=== PATIENT | male | born 1930 | race Caucasian/White ===

== ENCOUNTER → 2016-12-07 | Outpatient (CLI) | payer MEDICARE, MEDICAID ==
[~2016-12-07] MED LIST: ASCO500 PO; ASPI-1093 PO; BACTDSB PO; BUME2TAB18 PO; CALC-911 PO; CARV12.530 PO; CIPR-278 PO; CLOP75 PO; DOXA1TAB2 PO; GABA-531 PO; GLIP5 PO; ISOS30TA29 PO; LEVO25TA9 PO; LISI40TA4 PO; MULT-1192 PO; NITR0.4T SL; POTA8TAB4 PO; RANI150T7 PO; SANTO TP; SIMV-260 PO; SITA100 PO; VITA100049 PO; VITAD1000 PO
[2016-12-07 08:24] VITALS: BP_SYST 157
== END | disposition home or self-care (01) ==
LOC: HBOWC 07:44
PROVIDERS: ATTEND Emergency Medicine
DX: I87.2 Venous insufficiency (chronic) (peripheral) (principal); L97.821 Non-pressure chronic ulcer of other part of left lower leg limited to breakdown of skin; E11.622 Type 2 diabetes mellitus with other skin ulcer; L97.811 Non-pressure chronic ulcer of other part of right lower leg limited to breakdown of skin; E11.51 Type 2 diabetes mellitus with diabetic peripheral angiopathy without gangrene; E11.22 Type 2 diabetes mellitus with diabetic chronic kidney disease; N18.9 Chronic kidney disease, unspecified; L84 Corns and callosities; L95.0 Livedoid vasculitis; B35.1 Tinea unguium; Q66.7 Congenital pes cavus
CPT/HCPCS: 97597

== ENCOUNTER → 2016-12-21 | Outpatient (CLI) | payer MEDICARE, MEDICAID ==
[2016-12-21 08:24] VITALS: BP 145/66
== END | disposition home or self-care (01) ==
LOC: HBOWC 07:28
PROVIDERS: ATTEND Emergency Medicine
DX: E11.622 Type 2 diabetes mellitus with other skin ulcer (principal); L97.821 Non-pressure chronic ulcer of other part of left lower leg limited to breakdown of skin; L97.811 Non-pressure chronic ulcer of other part of right lower leg limited to breakdown of skin; E11.51 Type 2 diabetes mellitus with diabetic peripheral angiopathy without gangrene; I87.8 Other specified disorders of veins; I77.9 Disorder of arteries and arterioles, unspecified; I87.2 Venous insufficiency (chronic) (peripheral); L95.0 Livedoid vasculitis; B35.1 Tinea unguium; L84 Corns and callosities; E11.22 Type 2 diabetes mellitus with diabetic chronic kidney disease; N18.9 Chronic kidney disease, unspecified
CPT/HCPCS: 97597

== ENCOUNTER → 2017-01-03 | Outpatient (CLI) | payer MEDICARE, MEDICAID ==
[~2017-01-03] MED LIST changes: +LIDOCAINE HCL 2% 5 ML JELLY TP ONE
[2017-01-03 08:31] VITALS: BP 176/74
== END | disposition home or self-care (01) ==
LOC: HBOWC 07:56
PROVIDERS: ATTEND Emergency Medicine Undersea and Hyperbaric Medicine
DX: E11.622 Type 2 diabetes mellitus with other skin ulcer (principal); L97.821 Non-pressure chronic ulcer of other part of left lower leg limited to breakdown of skin; L97.811 Non-pressure chronic ulcer of other part of right lower leg limited to breakdown of skin; I87.2 Venous insufficiency (chronic) (peripheral); E11.22 Type 2 diabetes mellitus with diabetic chronic kidney disease; I12.9 Hypertensive chronic kidney disease with stage 1 through stage 4 chronic kidney disease, or unspecified chronic kidney disease; N18.9 Chronic kidney disease, unspecified; B35.1 Tinea unguium; E11.51 Type 2 diabetes mellitus with diabetic peripheral angiopathy without gangrene
CPT/HCPCS: 97597

== ENCOUNTER → 2017-01-17 | Outpatient (CLI) | payer MEDICARE, MEDICAID ==
[~2017-01-17] MED LIST changes: -CIPR-278 PO; -LIDOCAINE HCL 2% 5 ML JELLY TP ONE; -SIMV-260 PO; +SIMV20 PO
[2017-01-17 08:25] VITALS: BP 141/71
== END | disposition home or self-care (01) ==
LOC: HBOWC 07:58
PROVIDERS: ATTEND Emergency Medicine
DX: E11.622 Type 2 diabetes mellitus with other skin ulcer (principal); I87.2 Venous insufficiency (chronic) (peripheral); E11.51 Type 2 diabetes mellitus with diabetic peripheral angiopathy without gangrene; L97.811 Non-pressure chronic ulcer of other part of right lower leg limited to breakdown of skin; B35.1 Tinea unguium; L84 Corns and callosities; E11.22 Type 2 diabetes mellitus with diabetic chronic kidney disease; I12.9 Hypertensive chronic kidney disease with stage 1 through stage 4 chronic kidney disease, or unspecified chronic kidney disease; N18.9 Chronic kidney disease, unspecified; Q66.7 Congenital pes cavus
CPT/HCPCS: 97597

== ENCOUNTER → 2017-01-31 | Outpatient (CLI) | payer MEDICARE, MEDICAID ==
[~2017-01-31] MED LIST changes: -BACTDSB PO; -SANTO TP
[2017-01-31 08:33] VITALS: BP 142/73
== END | disposition home or self-care (01) ==
LOC: HBOWC 08:09
PROVIDERS: ATTEND Emergency Medicine Undersea and Hyperbaric Medicine
DX: E11.622 Type 2 diabetes mellitus with other skin ulcer (principal); I87.2 Venous insufficiency (chronic) (peripheral); L97.811 Non-pressure chronic ulcer of other part of right lower leg limited to breakdown of skin; E11.51 Type 2 diabetes mellitus with diabetic peripheral angiopathy without gangrene; I48.91 Unspecified atrial fibrillation; L84 Corns and callosities; E11.22 Type 2 diabetes mellitus with diabetic chronic kidney disease; I12.9 Hypertensive chronic kidney disease with stage 1 through stage 4 chronic kidney disease, or unspecified chronic kidney disease; N18.9 Chronic kidney disease, unspecified; B35.1 Tinea unguium
CPT/HCPCS: 97597

== ENCOUNTER → 2017-02-14 | Outpatient (CLI) | payer MEDICARE, MEDICAID ==
[~2017-02-14] MED LIST changes: +LIDOCAINE HCL 2% 5 ML JELLY TP ONE
[2017-02-14 08:25] VITALS: BP 179/69
== END | disposition home or self-care (01) ==
LOC: HBOWC 07:06
PROVIDERS: ATTEND Emergency Medicine
DX: E11.622 Type 2 diabetes mellitus with other skin ulcer (principal); L97.811 Non-pressure chronic ulcer of other part of right lower leg limited to breakdown of skin; I87.2 Venous insufficiency (chronic) (peripheral); L97.821 Non-pressure chronic ulcer of other part of left lower leg limited to breakdown of skin; E11.22 Type 2 diabetes mellitus with diabetic chronic kidney disease; I12.9 Hypertensive chronic kidney disease with stage 1 through stage 4 chronic kidney disease, or unspecified chronic kidney disease; N18.9 Chronic kidney disease, unspecified; E11.51 Type 2 diabetes mellitus with diabetic peripheral angiopathy without gangrene; B35.1 Tinea unguium; L84 Corns and callosities; L95.0 Livedoid vasculitis
CPT/HCPCS: 97597

== ENCOUNTER → 2017-02-28 | Outpatient (CLI) | payer MEDICARE, MEDICAID ==
[~2017-02-28] MED LIST changes: +CIPR-278 PO; +DULO30CA2 PO; -LIDOCAINE HCL 2% 5 ML JELLY TP ONE; +PREG50 PO; +SIMV-260 PO; -SIMV20 PO
[2017-02-28 08:09] VITALS: BP 161/69
== END | disposition home or self-care (01) ==
LOC: HBOWC 07:45
PROVIDERS: ATTEND Emergency Medicine
DX: E11.622 Type 2 diabetes mellitus with other skin ulcer (principal); I87.2 Venous insufficiency (chronic) (peripheral); L97.821 Non-pressure chronic ulcer of other part of left lower leg limited to breakdown of skin; L97.811 Non-pressure chronic ulcer of other part of right lower leg limited to breakdown of skin; E11.51 Type 2 diabetes mellitus with diabetic peripheral angiopathy without gangrene; B35.1 Tinea unguium; E11.22 Type 2 diabetes mellitus with diabetic chronic kidney disease; I12.9 Hypertensive chronic kidney disease with stage 1 through stage 4 chronic kidney disease, or unspecified chronic kidney disease; N18.9 Chronic kidney disease, unspecified; I48.91 Unspecified atrial fibrillation; L84 Corns and callosities; Q66.7 Congenital pes cavus
CPT/HCPCS: 97597

== ENCOUNTER → 2017-03-14 | Outpatient (CLI) | payer MEDICARE, MEDICAID ==
[~2017-03-14] MED LIST changes: -CIPR-278 PO; -DULO30CA2 PO; -PREG50 PO
[2017-03-14 08:30] VITALS: BP 136/66
== END | disposition home or self-care (01) ==
LOC: HBOWC 07:44
PROVIDERS: ATTEND Emergency Medicine
DX: E11.622 Type 2 diabetes mellitus with other skin ulcer (principal); L97.811 Non-pressure chronic ulcer of other part of right lower leg limited to breakdown of skin; I87.2 Venous insufficiency (chronic) (peripheral); E11.621 Type 2 diabetes mellitus with foot ulcer; L97.511 Non-pressure chronic ulcer of other part of right foot limited to breakdown of skin; E11.51 Type 2 diabetes mellitus with diabetic peripheral angiopathy without gangrene; E11.22 Type 2 diabetes mellitus with diabetic chronic kidney disease; I12.9 Hypertensive chronic kidney disease with stage 1 through stage 4 chronic kidney disease, or unspecified chronic kidney disease; N18.9 Chronic kidney disease, unspecified; I48.91 Unspecified atrial fibrillation; B35.1 Tinea unguium; L95.0 Livedoid vasculitis; L84 Corns and callosities
CPT/HCPCS: 97597

== ENCOUNTER → 2017-03-30 | Outpatient (CLI) | payer MEDICARE, MEDICAID ==
[~2017-03-30] MED LIST changes: +CIPR-278 PO; +DULO30CA2 PO; +PREG50 PO
[2017-03-30 08:15] VITALS: BP 149/64
== END | disposition home or self-care (01) ==
LOC: HBOWC 07:37
PROVIDERS: ATTEND Emergency Medicine
DX: E11.621 Type 2 diabetes mellitus with foot ulcer (principal); I87.2 Venous insufficiency (chronic) (peripheral); L97.811 Non-pressure chronic ulcer of other part of right lower leg limited to breakdown of skin; E11.51 Type 2 diabetes mellitus with diabetic peripheral angiopathy without gangrene; E11.22 Type 2 diabetes mellitus with diabetic chronic kidney disease; I12.9 Hypertensive chronic kidney disease with stage 1 through stage 4 chronic kidney disease, or unspecified chronic kidney disease; N18.9 Chronic kidney disease, unspecified; L95.0 Livedoid vasculitis; B35.1 Tinea unguium; I48.91 Unspecified atrial fibrillation
CPT/HCPCS: 97597

== ENCOUNTER → 2017-04-13 | Outpatient (CLI) | payer MEDICARE, MEDICAID ==
[~2017-04-13] MED LIST changes: -CIPR-278 PO; -DULO30CA2 PO; -PREG50 PO
[2017-04-13 08:40] VITALS: BP 117/56
== END | disposition home or self-care (01) ==
LOC: HBOWC 07:40
PROVIDERS: ATTEND Emergency Medicine
DX: E11.622 Type 2 diabetes mellitus with other skin ulcer (principal); I87.2 Venous insufficiency (chronic) (peripheral); L97.821 Non-pressure chronic ulcer of other part of left lower leg limited to breakdown of skin; L97.811 Non-pressure chronic ulcer of other part of right lower leg limited to breakdown of skin; E11.51 Type 2 diabetes mellitus with diabetic peripheral angiopathy without gangrene; E11.22 Type 2 diabetes mellitus with diabetic chronic kidney disease; I12.9 Hypertensive chronic kidney disease with stage 1 through stage 4 chronic kidney disease, or unspecified chronic kidney disease; N18.9 Chronic kidney disease, unspecified; L95.0 Livedoid vasculitis; B35.1 Tinea unguium; I48.91 Unspecified atrial fibrillation; L84 Corns and callosities; M21.6X9 Other acquired deformities of unspecified foot
CPT/HCPCS: 11720; 97597

== ENCOUNTER → 2017-04-27 | Outpatient (CLI) | payer MEDICARE, MEDICAID ==
[~2017-04-27] MED LIST changes: +CIPR-278 PO; +DULO30CA2 PO; +LIDOCAINE HCL 2% 5 ML JELLY TP ONE; +LIDOCAINE HCL 4% 50 ML SOLUTION TP ONE; +PREG50 PO
[2017-04-27 08:29] VITALS: BP 185/82
== END | disposition home or self-care (01) ==
LOC: HBOWC 07:45
PROVIDERS: ATTEND Emergency Medicine
DX: E11.622 Type 2 diabetes mellitus with other skin ulcer (principal); I87.2 Venous insufficiency (chronic) (peripheral); L97.821 Non-pressure chronic ulcer of other part of left lower leg limited to breakdown of skin; L97.811 Non-pressure chronic ulcer of other part of right lower leg limited to breakdown of skin; E11.51 Type 2 diabetes mellitus with diabetic peripheral angiopathy without gangrene; I48.91 Unspecified atrial fibrillation; I12.9 Hypertensive chronic kidney disease with stage 1 through stage 4 chronic kidney disease, or unspecified chronic kidney disease; E11.22 Type 2 diabetes mellitus with diabetic chronic kidney disease; N18.9 Chronic kidney disease, unspecified; Q66.7 Congenital pes cavus; L84 Corns and callosities; B35.1 Tinea unguium
CPT/HCPCS: 97597; 97598

== ENCOUNTER → 2017-05-11 | Outpatient (CLI) | payer MEDICARE, MEDICAID ==
[~2017-05-11] MED LIST changes: -LIDOCAINE HCL 2% 5 ML JELLY TP ONE; -LIDOCAINE HCL 4% 50 ML SOLUTION TP ONE
[2017-05-11 08:35] VITALS: BP 146/63
== END | disposition home or self-care (01) ==
LOC: HBOWC 07:42
PROVIDERS: ATTEND Emergency Medicine Undersea and Hyperbaric Medicine
DX: E11.622 Type 2 diabetes mellitus with other skin ulcer (principal); I87.2 Venous insufficiency (chronic) (peripheral); L97.811 Non-pressure chronic ulcer of other part of right lower leg limited to breakdown of skin; L97.821 Non-pressure chronic ulcer of other part of left lower leg limited to breakdown of skin; E11.51 Type 2 diabetes mellitus with diabetic peripheral angiopathy without gangrene; E11.22 Type 2 diabetes mellitus with diabetic chronic kidney disease; I12.9 Hypertensive chronic kidney disease with stage 1 through stage 4 chronic kidney disease, or unspecified chronic kidney disease; N18.9 Chronic kidney disease, unspecified; I48.91 Unspecified atrial fibrillation; Z91.19 Patient's noncompliance with other medical treatment and regimen
CPT/HCPCS: 97597

== ENCOUNTER → 2017-05-26 | Outpatient (CLI) | payer MEDICARE, MEDICAID ==
[~2017-05-26] MED LIST changes: +CEPH500 PO
[2017-05-26 08:24] VITALS: BP 152/77
== END | disposition home or self-care (01) ==
LOC: HBOWC 07:46
PROVIDERS: ATTEND Emergency Medicine
DX: E11.622 Type 2 diabetes mellitus with other skin ulcer (principal); I87.2 Venous insufficiency (chronic) (peripheral); L97.821 Non-pressure chronic ulcer of other part of left lower leg limited to breakdown of skin; L97.811 Non-pressure chronic ulcer of other part of right lower leg limited to breakdown of skin; E11.51 Type 2 diabetes mellitus with diabetic peripheral angiopathy without gangrene; E11.22 Type 2 diabetes mellitus with diabetic chronic kidney disease; I12.9 Hypertensive chronic kidney disease with stage 1 through stage 4 chronic kidney disease, or unspecified chronic kidney disease; N18.9 Chronic kidney disease, unspecified; I48.91 Unspecified atrial fibrillation; B35.1 Tinea unguium; L84 Corns and callosities
CPT/HCPCS: 97597

== ENCOUNTER → 2017-06-09 | Outpatient (CLI) | payer MEDICARE, MEDICAID ==
[~2017-06-09] MED LIST changes: -CIPR-278 PO; +LIDOCAINE HCL 2% 5 ML JELLY TP ONE
[2017-06-09 08:32] VITALS: BP 147/74
== END | disposition home or self-care (01) ==
LOC: HBOWC 07:45
PROVIDERS: ATTEND Emergency Medicine
DX: I87.2 Venous insufficiency (chronic) (peripheral) (principal); E11.622 Type 2 diabetes mellitus with other skin ulcer; L97.811 Non-pressure chronic ulcer of other part of right lower leg limited to breakdown of skin; E11.51 Type 2 diabetes mellitus with diabetic peripheral angiopathy without gangrene; E11.22 Type 2 diabetes mellitus with diabetic chronic kidney disease; I12.9 Hypertensive chronic kidney disease with stage 1 through stage 4 chronic kidney disease, or unspecified chronic kidney disease; N18.4 Chronic kidney disease, stage 4 (severe); L84 Corns and callosities; B35.1 Tinea unguium; I48.91 Unspecified atrial fibrillation
CPT/HCPCS: 97597

== ENCOUNTER → 2017-06-23 | Outpatient (CLI) | payer MEDICARE, MEDICAID ==
[2017-06-23 08:51] VITALS: BP 182/81
== END | disposition home or self-care (01) ==
LOC: HBOWC 07:22
PROVIDERS: ATTEND Emergency Medicine
DX: E11.622 Type 2 diabetes mellitus with other skin ulcer (principal); I87.2 Venous insufficiency (chronic) (peripheral); L97.821 Non-pressure chronic ulcer of other part of left lower leg limited to breakdown of skin; L97.811 Non-pressure chronic ulcer of other part of right lower leg limited to breakdown of skin; E11.51 Type 2 diabetes mellitus with diabetic peripheral angiopathy without gangrene; E11.22 Type 2 diabetes mellitus with diabetic chronic kidney disease; N18.4 Chronic kidney disease, stage 4 (severe); I48.91 Unspecified atrial fibrillation; B35.1 Tinea unguium; L84 Corns and callosities
CPT/HCPCS: 97597

== ENCOUNTER → 2017-07-07 | Outpatient (CLI) | payer MEDICARE, MEDICAID ==
[~2017-07-07] MED LIST changes: -CEPH500 PO; -LIDOCAINE HCL 2% 5 ML JELLY TP ONE
[2017-07-07 08:50] VITALS: BP 179/78
== END | disposition home or self-care (01) ==
LOC: HBOWC 07:33
PROVIDERS: ATTEND Emergency Medicine Undersea and Hyperbaric Medicine
DX: E11.622 Type 2 diabetes mellitus with other skin ulcer (principal); L97.821 Non-pressure chronic ulcer of other part of left lower leg limited to breakdown of skin; E11.22 Type 2 diabetes mellitus with diabetic chronic kidney disease; I12.9 Hypertensive chronic kidney disease with stage 1 through stage 4 chronic kidney disease, or unspecified chronic kidney disease; N18.4 Chronic kidney disease, stage 4 (severe); L84 Corns and callosities; B35.1 Tinea unguium; E11.51 Type 2 diabetes mellitus with diabetic peripheral angiopathy without gangrene; I48.91 Unspecified atrial fibrillation
CPT/HCPCS: 97597

== ENCOUNTER → 2017-07-27 | Outpatient (CLI) | payer MEDICARE, MEDICAID ==
[~2017-07-27] MED LIST changes: -ASPI-1093 PO; +ASPI-1188 PO; +LIDOCAINE HCL 2% 5 ML JELLY ONE; +SITA50 PO
[2017-07-27 09:17] VITALS: BP 180/86
== END | disposition home or self-care (01) ==
LOC: HBOWC 07:37
PROVIDERS: ATTEND Nurse Practitioner Adult Health
DX: I87.2 Venous insufficiency (chronic) (peripheral) (principal); E11.622 Type 2 diabetes mellitus with other skin ulcer; L97.821 Non-pressure chronic ulcer of other part of left lower leg limited to breakdown of skin; L97.811 Non-pressure chronic ulcer of other part of right lower leg limited to breakdown of skin; E11.51 Type 2 diabetes mellitus with diabetic peripheral angiopathy without gangrene; E11.22 Type 2 diabetes mellitus with diabetic chronic kidney disease; I12.9 Hypertensive chronic kidney disease with stage 1 through stage 4 chronic kidney disease, or unspecified chronic kidney disease; N18.4 Chronic kidney disease, stage 4 (severe); B35.1 Tinea unguium; I48.91 Unspecified atrial fibrillation
CPT/HCPCS: 17250

== ENCOUNTER → 2017-08-10 | Outpatient (CLI) | payer MEDICARE, MEDICAID ==
[~2017-08-10] MED LIST changes: -LIDOCAINE HCL 2% 5 ML JELLY ONE
[2017-08-10 08:53] VITALS: BP 162/72
== END | disposition home or self-care (01) ==
LOC: HBOWC 07:48
PROVIDERS: ATTEND Podiatrist
DX: E11.622 Type 2 diabetes mellitus with other skin ulcer (principal); L97.821 Non-pressure chronic ulcer of other part of left lower leg limited to breakdown of skin; E11.51 Type 2 diabetes mellitus with diabetic peripheral angiopathy without gangrene; I12.9 Hypertensive chronic kidney disease with stage 1 through stage 4 chronic kidney disease, or unspecified chronic kidney disease; E11.22 Type 2 diabetes mellitus with diabetic chronic kidney disease; N18.4 Chronic kidney disease, stage 4 (severe); I48.91 Unspecified atrial fibrillation; I87.2 Venous insufficiency (chronic) (peripheral); B35.1 Tinea unguium

== ENCOUNTER → 2017-08-24 | Outpatient (CLI) | payer MEDICARE, MEDICAID ==
[~2017-08-24] MED LIST changes: +LIDOCAINE HCL 2% 5 ML JELLY TP ONE
[2017-08-24 08:07] VITALS: BP 157/76
== END | disposition home or self-care (01) ==
LOC: HBOWC 07:40
PROVIDERS: ATTEND Podiatrist
DX: E11.622 Type 2 diabetes mellitus with other skin ulcer (principal); L97.821 Non-pressure chronic ulcer of other part of left lower leg limited to breakdown of skin; L97.811 Non-pressure chronic ulcer of other part of right lower leg limited to breakdown of skin; E11.51 Type 2 diabetes mellitus with diabetic peripheral angiopathy without gangrene; I12.9 Hypertensive chronic kidney disease with stage 1 through stage 4 chronic kidney disease, or unspecified chronic kidney disease; E11.22 Type 2 diabetes mellitus with diabetic chronic kidney disease; N18.4 Chronic kidney disease, stage 4 (severe); I48.91 Unspecified atrial fibrillation; I87.2 Venous insufficiency (chronic) (peripheral); B35.1 Tinea unguium

== ENCOUNTER → 2017-09-07 | Outpatient (CLI) | payer MEDICARE, MEDICAID ==
[~2017-09-07] MED LIST changes: -LIDOCAINE HCL 2% 5 ML JELLY TP ONE
[2017-09-07 08:42] VITALS: BP 150/67
== END | disposition home or self-care (01) ==
LOC: HBOWC 07:14
PROVIDERS: ATTEND Nurse Practitioner Adult Health
DX: I87.2 Venous insufficiency (chronic) (peripheral) (principal); E11.622 Type 2 diabetes mellitus with other skin ulcer; L97.821 Non-pressure chronic ulcer of other part of left lower leg limited to breakdown of skin; E11.51 Type 2 diabetes mellitus with diabetic peripheral angiopathy without gangrene; E11.22 Type 2 diabetes mellitus with diabetic chronic kidney disease; I12.9 Hypertensive chronic kidney disease with stage 1 through stage 4 chronic kidney disease, or unspecified chronic kidney disease; N18.4 Chronic kidney disease, stage 4 (severe); B35.1 Tinea unguium; I48.91 Unspecified atrial fibrillation

== ENCOUNTER → 2017-09-28 | Outpatient (CLI) | payer MEDICARE, MEDICAID ==
[~2017-09-28] MED LIST changes: +LIDOCAINE HCL 2% 5 ML JELLY TP ONE
[2017-09-28 08:28] VITALS: BP 155/74
== END | disposition home or self-care (01) ==
LOC: HBOWC 08:06
PROVIDERS: ATTEND Podiatrist
DX: I70.238 Atherosclerosis of native arteries of right leg with ulceration of other part of lower leg (principal); L97.811 Non-pressure chronic ulcer of other part of right lower leg limited to breakdown of skin; I87.2 Venous insufficiency (chronic) (peripheral); E11.622 Type 2 diabetes mellitus with other skin ulcer; L97.821 Non-pressure chronic ulcer of other part of left lower leg limited to breakdown of skin; E11.51 Type 2 diabetes mellitus with diabetic peripheral angiopathy without gangrene; E11.22 Type 2 diabetes mellitus with diabetic chronic kidney disease; I12.9 Hypertensive chronic kidney disease with stage 1 through stage 4 chronic kidney disease, or unspecified chronic kidney disease; N18.4 Chronic kidney disease, stage 4 (severe); I48.91 Unspecified atrial fibrillation

== ENCOUNTER → 2017-10-12 | Outpatient (CLI) | payer MEDICARE, MEDICAID ==
[~2017-10-12] MED LIST changes: +LIDOCAINE HCL 4% 50 ML SOLUTION TP ONE
[2017-10-12 09:29] VITALS: BP 163/72
== END | disposition home or self-care (01) ==
LOC: HBOWC 08:56
PROVIDERS: ATTEND Nurse Practitioner Adult Health
DX: I87.2 Venous insufficiency (chronic) (peripheral) (principal); E11.622 Type 2 diabetes mellitus with other skin ulcer; L97.821 Non-pressure chronic ulcer of other part of left lower leg limited to breakdown of skin; L97.811 Non-pressure chronic ulcer of other part of right lower leg limited to breakdown of skin; E11.51 Type 2 diabetes mellitus with diabetic peripheral angiopathy without gangrene; I25.10 Atherosclerotic heart disease of native coronary artery without angina pectoris; E11.22 Type 2 diabetes mellitus with diabetic chronic kidney disease; I12.9 Hypertensive chronic kidney disease with stage 1 through stage 4 chronic kidney disease, or unspecified chronic kidney disease; N18.4 Chronic kidney disease, stage 4 (severe); I48.91 Unspecified atrial fibrillation; B35.1 Tinea unguium

== ENCOUNTER → 2017-11-02 | Outpatient (CLI) | payer MEDICARE, MEDICAID ==
[~2017-11-02] MED LIST changes: -LIDOCAINE HCL 2% 5 ML JELLY TP ONE; -LIDOCAINE HCL 4% 50 ML SOLUTION TP ONE
[2017-11-02 08:22] VITALS: BP 129/65
== END | disposition home or self-care (01) ==
LOC: HBOWC 07:45
PROVIDERS: ATTEND Nurse Practitioner Adult Health
DX: I87.2 Venous insufficiency (chronic) (peripheral) (principal); E11.622 Type 2 diabetes mellitus with other skin ulcer; L97.821 Non-pressure chronic ulcer of other part of left lower leg limited to breakdown of skin; E11.51 Type 2 diabetes mellitus with diabetic peripheral angiopathy without gangrene; I25.10 Atherosclerotic heart disease of native coronary artery without angina pectoris; E11.22 Type 2 diabetes mellitus with diabetic chronic kidney disease; N18.4 Chronic kidney disease, stage 4 (severe); B35.1 Tinea unguium; I48.91 Unspecified atrial fibrillation
CPT/HCPCS: 11042

== ENCOUNTER → 2017-11-06 | Outpatient (CLI) | payer MEDICARE, MEDICAID ==
[~2017-11-06] MED LIST changes: +LIDOCAINE HCL 2% 5 ML JELLY ONE
[2017-11-06 08:58] VITALS: BP 137/69
== END | disposition home or self-care (01) ==
LOC: HBOWC 08:51
PROVIDERS: ATTEND Surgery Plastic and Reconstructive Surgery
DX: I87.2 Venous insufficiency (chronic) (peripheral) (principal); E11.622 Type 2 diabetes mellitus with other skin ulcer; L97.821 Non-pressure chronic ulcer of other part of left lower leg limited to breakdown of skin; L97.811 Non-pressure chronic ulcer of other part of right lower leg limited to breakdown of skin; E11.51 Type 2 diabetes mellitus with diabetic peripheral angiopathy without gangrene; I25.10 Atherosclerotic heart disease of native coronary artery without angina pectoris; E11.22 Type 2 diabetes mellitus with diabetic chronic kidney disease; I12.9 Hypertensive chronic kidney disease with stage 1 through stage 4 chronic kidney disease, or unspecified chronic kidney disease; N18.4 Chronic kidney disease, stage 4 (severe); B35.1 Tinea unguium; I48.91 Unspecified atrial fibrillation
CPT/HCPCS: 11042

== ENCOUNTER 2017-11-15 11:53 | Inpatient (IN) | payer MEDICARE, MEDICAID ==
[~2017-11-15] VITALS: Ht 167.6 cm; Wt 85.6 kg
[~2017-11-15 11:53] MED LIST changes: -SITA50 PO
[2017-11-15 13:12] LABS: GLUCOSE,POINT OF CARE 119 MG/DL (70-110)
[2017-11-15 16:13] LABS: BASOPHILS # (AUTO) 0.02 K/uL (0.00-0.20); BASOPHILS % (AUTO) 0.2 % (0.0-2.0); EOSINOPHILS # (AUTO) 0.21 K/uL (0.00-0.70); EOSINOPHILS % (AUTO) 2.24 % (1.0-6.0); HEMATOCRIT 36.1 % (41-53); HEMOGLOBIN 11.7 g/dL (13.5-17.5); LYMPHOCYTES # (AUTO) 1.7 K/uL (1.0-4.8); LYMPHOCYTES % (AUTO) 18.6 % (22.0-44.0); MEAN CORPUSCULAR HGB CONC 32.4 G/dL (31.0-37.0); MEAN CORPUSCULAR VOLUME 86 fL (80-100); MONOCYTES # (AUTO) 0.8 K/uL (0.1-1.0); NEUTROPHILS # (AUTO) 6.5 K/uL (1.8-7.7); PLATELET COUNT (AUTO) 261 K/uL (150-450); RED BLOOD CELL COUNT(AUTO) 4.18 MIL/uL (4.50-5.90); RED CELL DISTRIBUTION WIDTH 14.3 % (11.5-14.5)
[2017-11-15 16:16] LABS: CALCIUM, TOTAL 9.2 mg/dL (8.8-10.5); CREATININE 1.29 mg/dL (0.60-1.30); POTASSIUM 4.1 mmol/L (3.5-5.1)
[2017-11-15 16:19] LABS: INR 1.1 (0.9-1.1); PROTHROMBIN TIME 11.5 SEC (9.4-11.6)
[2017-11-15 16:22] LABS: ALBUMIN 3.1 g/dL (3.4-5.0); BILIRUBIN,TOTAL 0.7 mg/dL (0.1-1.0); TOTAL PROTEIN, SERUM 8.3 g/dL (6.4-8.2)
[2017-11-15 16:24] LABS: LACTIC ACID 1.3 mmol/L (0.4-2.0)
[2017-11-15] MEDS ORDERED: ACETAMINOPHEN 325 MG TABLET PO PRN ×2 (17:45→21:30)
[2017-11-15] MEDS ORDERED: 0.9% SODIUM CHLORIDE 10 ML SYRINGE IVP PRN (17:45)
[2017-11-15] MEDS ORDERED: VANCOMYCIN HCL 1 GM/D5% WATER 200 ML IV ONE (17:45)
[2017-11-15] MEDS ORDERED: ONDANSETRON HCL 4 MG/2 ML VIAL IVP PRN (17:45)
[2017-11-15] MEDS ORDERED: ISOSORBIDE MONONITRATE 20 MG TABLET PO ONE (18:45)
[2017-11-15 20:30] VITALS: BP 147/68
[2017-11-15] MEDS ORDERED: CARVEDILOL 3.125 MG TABLET PO SCH (21:00)
[2017-11-15] MEDS ORDERED: MORPHINE SULFATE 2 MG/ML SYRINGE IVP PRN (21:30)
[2017-11-15] MEDS ORDERED: POTASSIUM CHLORIDE 20 MEQ ER TABLET PO PRN (21:30)
[2017-11-15] MEDS ORDERED: DEXTROSE 50%-WATER 25 GM/50 ML SYRINGE IVP PRN (21:30)
[2017-11-15] MEDS ORDERED: MAGNESIUM HYDROXIDE SUSPENSION 30 ML UDCUP PO PRN (21:30)
[2017-11-15] MEDS ORDERED: POTASSIUM CHL 10 MEQ/WATER 50 ML IV PRN (21:30)
[2017-11-15 23:20] VITALS: BP 116/57
[2017-11-16] MEDS ORDERED: SODIUM CHLORIDE 0.9% 250 ML IV ONE (00:47)
[2017-11-16] MEDS: PIPERACILLIN/TAZO 3.375 GM/D5W 50 ML IV SCH ×5 (00:50→21:33)
[2017-11-16] MEDS: HYDROCODONE/ACETAMINOPHEN 5-325 MG TABLET PO PRN (00:50)
[2017-11-16] MEDS: HEPARIN SODIUM,PORCINE 5,000 UNITS/ML VIAL SQ SCH ×3 (00:59→16:08)
[2017-11-16] MEDS ORDERED: INFLUENZA VIRUS VACCINE QVS 2017-18 (3YR+)/PF 60 MCG/0.5 ML SYRINGE IM ONE (04:45)
[2017-11-16 04:49] VITALS: BP 149/70
[2017-11-16] MEDS: INSULIN ASPART 100 UNITS/ML SQ PRN ×3 (06:52→21:34)
[2017-11-16 06:57] LABS: GLUCOMETER DEV NAME(LOC) 6N 1E; GLUCOSE,POINT OF CARE 127 MG/DL (70-110)
[2017-11-16 07:34] VITALS: BP 148/62
[2017-11-16] MEDS: DOCUSATE SODIUM 100 MG CAPSULE PO SCH ×2 (08:40→20:34)
[2017-11-16] MEDS: CARVEDILOL 6.25 MG TABLET PO SCH ×2 (08:40→20:35)
[2017-11-16] MEDS: PANTOPRAZOLE SODIUM 40 MG DR TABLET PO SCH (08:40)
[2017-11-16] MEDS: CLOPIDOGREL BISULFATE 75 MG TABLET PO SCH (08:40)
[2017-11-16] MEDS: ASPIRIN 81 MG CHEWABLE TABLET PO SCH (08:40)
[2017-11-16 11:43] VITALS: BP 152/62
[2017-11-16 13:27] LABS: GLUCOMETER DEV NAME(LOC) 5N 2R; GLUCOSE,POINT OF CARE 148 MG/DL (70-110)
[2017-11-16 15:21] VITALS: BP 139/64
[2017-11-16 18:47] LABS: GLUCOMETER DEV NAME(LOC) 5N 2R; GLUCOSE,POINT OF CARE 135 MG/DL (70-110)
[2017-11-16 19:50] VITALS: BP 165/69
[2017-11-16] MEDS ORDERED: ATORVASTATIN CALCIUM 20 MG TABLET PO SCH (21:00)
[2017-11-16 23:46] VITALS: BP 158/68
[2017-11-17] MEDS: HYDROCODONE/ACETAMINOPHEN 5-325 MG TABLET PO PRN ×2 (00:03→13:39)
[2017-11-17] MEDS: HEPARIN SODIUM,PORCINE 5,000 UNITS/ML VIAL SQ SCH ×2 (00:03→08:40)
[2017-11-17] MEDS: PIPERACILLIN/TAZO 3.375 GM/D5W 50 ML IV SCH ×2 (03:43→08:51)
[2017-11-17 03:47] LABS: GLUCOMETER DEV NAME(LOC) 6N 1E; GLUCOSE,POINT OF CARE 171 MG/DL (70-110)
[2017-11-17 04:44] VITALS: BP 180/74
[2017-11-17 05:28] LABS: GLUCOMETER DEV NAME(LOC) 6N 2D; GLUCOSE,POINT OF CARE 118 MG/DL (70-110)
[2017-11-17 06:14] VITALS: BP 168/78
[2017-11-17 06:17] LABS: CALCIUM, TOTAL 8.8 mg/dL (8.8-10.5); CREATININE 1.54 mg/dL (0.60-1.30); POTASSIUM 3.9 mmol/L (3.5-5.1)
[2017-11-17 06:40] LABS: BASOPHILS % (AUTO) 0.5 % (0.0-2.0); EOSINOPHILS % (AUTO) 4.1 % (1.0-6.0); HEMATOCRIT 32.2 % (41-53); HEMOGLOBIN 10.6 g/dL (13.5-17.5); LYMPHOCYTES # (AUTO) 1.6 K/uL (1.0-4.8); LYMPHOCYTES % (AUTO) 21.3 % (22.0-44.0); MEAN CORPUSCULAR VOLUME 85 fL (80-100); MONOCYTES # (AUTO) 0.8 K/uL (0.1-1.0); MONOCYTES % (AUTO) 10.2 % (2.0-9.0); NEUTROPHILS # (AUTO) 4.7 K/uL (1.8-7.7); NEUTROPHILS % (AUTO) 63.9 % (40.0-70.0); PLATELET COUNT (AUTO) 215 K/uL (150-450); RED CELL DISTRIBUTION WIDTH 14.6 % (11.5-14.5)
[2017-11-17 08:17] VITALS: BP 157/68
[2017-11-17] MEDS: CLOPIDOGREL BISULFATE 75 MG TABLET PO SCH (08:40)
[2017-11-17] MEDS: PANTOPRAZOLE SODIUM 40 MG DR TABLET PO SCH (08:40)
[2017-11-17] MEDS: DOCUSATE SODIUM 100 MG CAPSULE PO SCH (08:40)
[2017-11-17] MEDS: CARVEDILOL 6.25 MG TABLET PO SCH (08:40)
[2017-11-17] MEDS: ASPIRIN 81 MG CHEWABLE TABLET PO SCH (08:40)
[2017-11-17] MEDS ORDERED: SITA50 PO (11:31)
[2017-11-17 12:01] VITALS: BP 154/60
[2017-11-17] MEDS: INSULIN ASPART 100 UNITS/ML SQ PRN (12:17)
[2017-11-18 03:27] LABS: GLUCOMETER DEV NAME(LOC) 6N 2D; GLUCOSE,POINT OF CARE 167 MG/DL (70-110)
== END 2017-11-17 14:00 | disposition home or self-care (01) | DRG 603 ==
LOC: EMS 11:54 → 6N 18:19
PROVIDERS: ADMIT Internal Medicine; ATTEND Internal Medicine
DX: L03.115 Cellulitis of right lower limb (principal); E11.40 Type 2 diabetes mellitus with diabetic neuropathy, unspecified; E11.51 Type 2 diabetes mellitus with diabetic peripheral angiopathy without gangrene; I50.22 Chronic systolic (congestive) heart failure; I25.10 Atherosclerotic heart disease of native coronary artery without angina pectoris; I11.0 Hypertensive heart disease with heart failure; Z95.5 Presence of coronary angioplasty implant and graft; Z79.899 Other long term (current) drug therapy; S80.11XA Contusion of right lower leg, initial encounter; X58.XXXA Exposure to other specified factors, initial encounter; Y93.89 Activity, other specified; Y92.89 Other specified places as the place of occurrence of the external cause; Y99.8 Other external cause status; Z28.21 Immunization not carried out because of patient refusal
CPT/HCPCS: 82962; 83605; 87040; 87070; 87205; 93306; 96365; 99285; J1644; J2543; J3370; J7050

== ENCOUNTER → 2017-11-15 | Outpatient (CLI) | payer MEDICARE, MEDICAID ==
[~2017-11-15] MED LIST changes: -LIDOCAINE HCL 2% 5 ML JELLY ONE
[2017-11-15 10:12] VITALS: BP 159/90
== END | disposition home or self-care (01) ==
LOC: HBOWC 08:40
PROVIDERS: ATTEND Internal Medicine
DX: T81.89XD Other complications of procedures, not elsewhere classified, subsequent encounter (principal); E11.622 Type 2 diabetes mellitus with other skin ulcer; L97.821 Non-pressure chronic ulcer of other part of left lower leg limited to breakdown of skin; L97.811 Non-pressure chronic ulcer of other part of right lower leg limited to breakdown of skin; I87.2 Venous insufficiency (chronic) (peripheral); E11.51 Type 2 diabetes mellitus with diabetic peripheral angiopathy without gangrene; I25.10 Atherosclerotic heart disease of native coronary artery without angina pectoris; E11.40 Type 2 diabetes mellitus with diabetic neuropathy, unspecified; E11.22 Type 2 diabetes mellitus with diabetic chronic kidney disease; I13.0 Hypertensive heart and chronic kidney disease with heart failure and stage 1 through stage 4 chronic kidney disease, or unspecified chronic kidney disease; N18.4 Chronic kidney disease, stage 4 (severe); I50.22 Chronic systolic (congestive) heart failure; I48.92 Unspecified atrial flutter; Z95.5 Presence of coronary angioplasty implant and graft; Y83.8 Other surgical procedures as the cause of abnormal reaction of the patient, or of later complication, without mention of misadventure at the time of the procedure
CPT/HCPCS: 11042; 11045

== ENCOUNTER → 2017-11-20 | Outpatient (CLI) | payer MEDICARE, MEDICAID ==
[~2017-11-20] MED LIST changes: +COLLAGENASE 250 UNITS/GM 30 GM OINTMENT TP ONE; +LIDOCAINE HCL 4% 50 ML SOLUTION TP ONE; +SITA50 PO
[2017-11-20 09:15] VITALS: BP 148/58
== END | disposition home or self-care (01) ==
LOC: HBOWC 08:34
PROVIDERS: ATTEND Surgery Plastic and Reconstructive Surgery
DX: T81.89XD Other complications of procedures, not elsewhere classified, subsequent encounter (principal); E11.622 Type 2 diabetes mellitus with other skin ulcer; L97.821 Non-pressure chronic ulcer of other part of left lower leg limited to breakdown of skin; L97.811 Non-pressure chronic ulcer of other part of right lower leg limited to breakdown of skin; E11.51 Type 2 diabetes mellitus with diabetic peripheral angiopathy without gangrene; I87.2 Venous insufficiency (chronic) (peripheral); I25.10 Atherosclerotic heart disease of native coronary artery without angina pectoris; E11.40 Type 2 diabetes mellitus with diabetic neuropathy, unspecified; E11.22 Type 2 diabetes mellitus with diabetic chronic kidney disease; I13.0 Hypertensive heart and chronic kidney disease with heart failure and stage 1 through stage 4 chronic kidney disease, or unspecified chronic kidney disease; N18.4 Chronic kidney disease, stage 4 (severe); I50.22 Chronic systolic (congestive) heart failure; I48.92 Unspecified atrial flutter; I48.91 Unspecified atrial fibrillation; Z95.5 Presence of coronary angioplasty implant and graft; Y83.8 Other surgical procedures as the cause of abnormal reaction of the patient, or of later complication, without mention of misadventure at the time of the procedure
CPT/HCPCS: 11042; 11045; Z7610

== ENCOUNTER → 2017-11-27 | Outpatient (CLI) | payer MEDICARE, MEDICAID ==
[~2017-11-27] MED LIST changes: -BUME2TAB18 PO; -COLLAGENASE 250 UNITS/GM 30 GM OINTMENT TP ONE; -DULO30CA2 PO; -GABA-531 PO; -GLIP5 PO; -ISOS30TA29 PO; -LISI40TA4 PO; -POTA8TAB4 PO; -PREG50 PO; -SITA100 PO
[2017-11-27 08:29] VITALS: BP 145/63
== END | disposition home or self-care (01) ==
LOC: HBOWC 07:43
PROVIDERS: ATTEND Surgery Plastic and Reconstructive Surgery
DX: E11.622 Type 2 diabetes mellitus with other skin ulcer (principal); L97.811 Non-pressure chronic ulcer of other part of right lower leg limited to breakdown of skin; L97.821 Non-pressure chronic ulcer of other part of left lower leg limited to breakdown of skin; E11.51 Type 2 diabetes mellitus with diabetic peripheral angiopathy without gangrene; B35.1 Tinea unguium; I25.10 Atherosclerotic heart disease of native coronary artery without angina pectoris; E11.22 Type 2 diabetes mellitus with diabetic chronic kidney disease; I13.0 Hypertensive heart and chronic kidney disease with heart failure and stage 1 through stage 4 chronic kidney disease, or unspecified chronic kidney disease; N18.4 Chronic kidney disease, stage 4 (severe); I50.22 Chronic systolic (congestive) heart failure; Z95.1 Presence of aortocoronary bypass graft; E11.40 Type 2 diabetes mellitus with diabetic neuropathy, unspecified; I48.91 Unspecified atrial fibrillation; I48.92 Unspecified atrial flutter
CPT/HCPCS: 11043

== ENCOUNTER → 2017-12-22 | Outpatient (CLI) | payer OTHER ==
[~2017-12-22] MED LIST changes: +CHLORHEXIDINE GLUCONATE 4% 118 ML TOPICAL LIQUID TP ONE; +LIDOCAINE HCL 2% 5 ML JELLY TP ONE
[2017-12-22 09:25] VITALS: BP 125/58
== END | disposition home or self-care (01) ==
LOC: HBOWC 08:49
PROVIDERS: ATTEND Podiatrist
DX: E11.622 Type 2 diabetes mellitus with other skin ulcer (principal); L97.821 Non-pressure chronic ulcer of other part of left lower leg limited to breakdown of skin; L97.811 Non-pressure chronic ulcer of other part of right lower leg limited to breakdown of skin; I87.2 Venous insufficiency (chronic) (peripheral); E11.51 Type 2 diabetes mellitus with diabetic peripheral angiopathy without gangrene; I25.10 Atherosclerotic heart disease of native coronary artery without angina pectoris; E11.22 Type 2 diabetes mellitus with diabetic chronic kidney disease; I13.0 Hypertensive heart and chronic kidney disease with heart failure and stage 1 through stage 4 chronic kidney disease, or unspecified chronic kidney disease; N18.4 Chronic kidney disease, stage 4 (severe); I50.22 Chronic systolic (congestive) heart failure; E11.40 Type 2 diabetes mellitus with diabetic neuropathy, unspecified; Z95.1 Presence of aortocoronary bypass graft; Z95.5 Presence of coronary angioplasty implant and graft; Z91.19 Patient's noncompliance with other medical treatment and regimen; Z79.899 Other long term (current) drug therapy
CPT/HCPCS: 11042; 11045

== ENCOUNTER → 2017-12-29 | Outpatient (CLI) | payer OTHER ==
[~2017-12-29] MED LIST changes: -CHLORHEXIDINE GLUCONATE 4% 118 ML TOPICAL LIQUID TP ONE
[2017-12-29 08:39] VITALS: BP 125/52
== END | disposition home or self-care (01) ==
LOC: HBOWC 07:53
PROVIDERS: ATTEND Podiatrist
DX: E11.622 Type 2 diabetes mellitus with other skin ulcer (principal); L97.821 Non-pressure chronic ulcer of other part of left lower leg limited to breakdown of skin; L97.811 Non-pressure chronic ulcer of other part of right lower leg limited to breakdown of skin; E11.51 Type 2 diabetes mellitus with diabetic peripheral angiopathy without gangrene; I25.10 Atherosclerotic heart disease of native coronary artery without angina pectoris; E11.22 Type 2 diabetes mellitus with diabetic chronic kidney disease; I13.0 Hypertensive heart and chronic kidney disease with heart failure and stage 1 through stage 4 chronic kidney disease, or unspecified chronic kidney disease; N18.4 Chronic kidney disease, stage 4 (severe); I50.22 Chronic systolic (congestive) heart failure; E11.40 Type 2 diabetes mellitus with diabetic neuropathy, unspecified; I48.91 Unspecified atrial fibrillation; I48.92 Unspecified atrial flutter; I87.2 Venous insufficiency (chronic) (peripheral); B35.1 Tinea unguium; Z95.1 Presence of aortocoronary bypass graft; Z79.899 Other long term (current) drug therapy
CPT/HCPCS: 11042; 11045

== ENCOUNTER → 2018-01-05 | Outpatient (CLI) | payer OTHER ==
[~2018-01-05] MED LIST changes: +COLLAGENASE 250 UNITS/GM 30 GM OINTMENT TP ONE; +MUPIROCIN CALCIUM 2% 22 GM OINTMENT TP ONE
[2018-01-05 09:06] VITALS: BP 176/71
== END | disposition home or self-care (01) ==
LOC: HBOWC 08:37
PROVIDERS: ATTEND Podiatrist
DX: T81.89XD Other complications of procedures, not elsewhere classified, subsequent encounter (principal); E11.622 Type 2 diabetes mellitus with other skin ulcer; L97.821 Non-pressure chronic ulcer of other part of left lower leg limited to breakdown of skin; L97.811 Non-pressure chronic ulcer of other part of right lower leg limited to breakdown of skin; E11.40 Type 2 diabetes mellitus with diabetic neuropathy, unspecified; E11.21 Type 2 diabetes mellitus with diabetic nephropathy; E11.51 Type 2 diabetes mellitus with diabetic peripheral angiopathy without gangrene; I25.10 Atherosclerotic heart disease of native coronary artery without angina pectoris; E11.22 Type 2 diabetes mellitus with diabetic chronic kidney disease; I13.0 Hypertensive heart and chronic kidney disease with heart failure and stage 1 through stage 4 chronic kidney disease, or unspecified chronic kidney disease; N18.4 Chronic kidney disease, stage 4 (severe); I50.22 Chronic systolic (congestive) heart failure; B35.1 Tinea unguium; I48.91 Unspecified atrial fibrillation; I48.92 Unspecified atrial flutter; I87.2 Venous insufficiency (chronic) (peripheral); Z95.1 Presence of aortocoronary bypass graft; Z95.5 Presence of coronary angioplasty implant and graft; Y83.8 Other surgical procedures as the cause of abnormal reaction of the patient, or of later complication, without mention of misadventure at the time of the procedure
CPT/HCPCS: 11042; 11045; Z7610

== ENCOUNTER → 2018-01-12 | Outpatient (CLI) | payer OTHER ==
[~2018-01-12] MED LIST changes: +ATOR40TA28 PO; +BUME1TAB17 PO; +CILO100T PO; -COLLAGENASE 250 UNITS/GM 30 GM OINTMENT TP ONE; +DULO60CA44 PO; +FERR-82 PO; +ISOS30TA6 PO; -LIDOCAINE HCL 4% 50 ML SOLUTION TP ONE; -MUPIROCIN CALCIUM 2% 22 GM OINTMENT TP ONE; +PREG50 PO; +SLOWK8 PO; +VALS160T2 PO
[2018-01-12 09:47] VITALS: BP 149/74
== END | disposition home or self-care (01) ==
LOC: HBOWC 08:05
PROVIDERS: ATTEND Podiatrist
DX: E11.622 Type 2 diabetes mellitus with other skin ulcer (principal); L97.811 Non-pressure chronic ulcer of other part of right lower leg limited to breakdown of skin; L97.821 Non-pressure chronic ulcer of other part of left lower leg limited to breakdown of skin; I87.2 Venous insufficiency (chronic) (peripheral); E11.51 Type 2 diabetes mellitus with diabetic peripheral angiopathy without gangrene; B35.1 Tinea unguium; I25.10 Atherosclerotic heart disease of native coronary artery without angina pectoris; E11.22 Type 2 diabetes mellitus with diabetic chronic kidney disease; I13.0 Hypertensive heart and chronic kidney disease with heart failure and stage 1 through stage 4 chronic kidney disease, or unspecified chronic kidney disease; N18.4 Chronic kidney disease, stage 4 (severe); I50.22 Chronic systolic (congestive) heart failure; E11.40 Type 2 diabetes mellitus with diabetic neuropathy, unspecified; E11.21 Type 2 diabetes mellitus with diabetic nephropathy; I48.91 Unspecified atrial fibrillation; I48.92 Unspecified atrial flutter; Z99.2 Dependence on renal dialysis; Z95.1 Presence of aortocoronary bypass graft
CPT/HCPCS: 11042; 11045

== ENCOUNTER → 2018-01-19 | Outpatient (CLI) | payer OTHER ==
[~2018-01-19] MED LIST changes: +LIDOCAINE HCL 4% 50 ML SOLUTION TP ONE; -SIMV-260 PO
[2018-01-19 08:22] VITALS: BP 129/64
== END | disposition home or self-care (01) ==
LOC: HBOWC 07:32
PROVIDERS: ATTEND Podiatrist
DX: E11.622 Type 2 diabetes mellitus with other skin ulcer (principal); L97.821 Non-pressure chronic ulcer of other part of left lower leg limited to breakdown of skin; S81.801D Unspecified open wound, right lower leg, subsequent encounter; E11.51 Type 2 diabetes mellitus with diabetic peripheral angiopathy without gangrene; I25.10 Atherosclerotic heart disease of native coronary artery without angina pectoris; E11.22 Type 2 diabetes mellitus with diabetic chronic kidney disease; I13.0 Hypertensive heart and chronic kidney disease with heart failure and stage 1 through stage 4 chronic kidney disease, or unspecified chronic kidney disease; N18.4 Chronic kidney disease, stage 4 (severe); I50.22 Chronic systolic (congestive) heart failure; E11.40 Type 2 diabetes mellitus with diabetic neuropathy, unspecified; E11.21 Type 2 diabetes mellitus with diabetic nephropathy; I48.91 Unspecified atrial fibrillation; I48.92 Unspecified atrial flutter; I87.2 Venous insufficiency (chronic) (peripheral); Z99.2 Dependence on renal dialysis; Z95.1 Presence of aortocoronary bypass graft; X58.XXXD Exposure to other specified factors, subsequent encounter
CPT/HCPCS: 11042; 11045

== ENCOUNTER → 2018-01-26 | Outpatient (CLI) | payer OTHER ==
[2018-01-26 08:34] VITALS: BP 166/75
== END | disposition home or self-care (01) ==
LOC: HBOWC 08:03
PROVIDERS: ATTEND Podiatrist
DX: E11.622 Type 2 diabetes mellitus with other skin ulcer (principal); L97.821 Non-pressure chronic ulcer of other part of left lower leg limited to breakdown of skin; L97.811 Non-pressure chronic ulcer of other part of right lower leg limited to breakdown of skin; E11.40 Type 2 diabetes mellitus with diabetic neuropathy, unspecified; E11.51 Type 2 diabetes mellitus with diabetic peripheral angiopathy without gangrene; E11.22 Type 2 diabetes mellitus with diabetic chronic kidney disease; I13.0 Hypertensive heart and chronic kidney disease with heart failure and stage 1 through stage 4 chronic kidney disease, or unspecified chronic kidney disease; N18.4 Chronic kidney disease, stage 4 (severe); I50.22 Chronic systolic (congestive) heart failure; I25.10 Atherosclerotic heart disease of native coronary artery without angina pectoris; I48.91 Unspecified atrial fibrillation; B35.1 Tinea unguium; I87.2 Venous insufficiency (chronic) (peripheral); Z95.1 Presence of aortocoronary bypass graft; Z99.2 Dependence on renal dialysis
CPT/HCPCS: 11042; 11045

== ENCOUNTER → 2018-02-02 | Outpatient (CLI) | payer OTHER ==
[~2018-02-02] MED LIST changes: -LIDOCAINE HCL 4% 50 ML SOLUTION TP ONE
[2018-02-02 08:25] VITALS: BP 157/71
== END | disposition home or self-care (01) ==
LOC: HBOWC 07:38
PROVIDERS: ATTEND Podiatrist
DX: E11.622 Type 2 diabetes mellitus with other skin ulcer (principal); L97.811 Non-pressure chronic ulcer of other part of right lower leg limited to breakdown of skin; L97.821 Non-pressure chronic ulcer of other part of left lower leg limited to breakdown of skin; E11.51 Type 2 diabetes mellitus with diabetic peripheral angiopathy without gangrene; I87.2 Venous insufficiency (chronic) (peripheral); B35.1 Tinea unguium; I25.10 Atherosclerotic heart disease of native coronary artery without angina pectoris; E11.22 Type 2 diabetes mellitus with diabetic chronic kidney disease; I13.0 Hypertensive heart and chronic kidney disease with heart failure and stage 1 through stage 4 chronic kidney disease, or unspecified chronic kidney disease; N18.4 Chronic kidney disease, stage 4 (severe); I50.22 Chronic systolic (congestive) heart failure; E11.40 Type 2 diabetes mellitus with diabetic neuropathy, unspecified; I48.91 Unspecified atrial fibrillation; I48.92 Unspecified atrial flutter; Z99.2 Dependence on renal dialysis; Z95.1 Presence of aortocoronary bypass graft
CPT/HCPCS: 11042; 11045

== ENCOUNTER → 2018-02-09 | Outpatient (CLI) | payer OTHER ==
[~2018-02-09] MED LIST changes: -LIDOCAINE HCL 2% 5 ML JELLY TP ONE; +LIDOCAINE HCL 4% 50 ML SOLUTION TP ONE
[2018-02-09 08:15] VITALS: BP 162/88
== END | disposition home or self-care (01) ==
LOC: HBOWC 08:12
PROVIDERS: ATTEND Podiatrist
DX: E11.622 Type 2 diabetes mellitus with other skin ulcer (principal); L97.821 Non-pressure chronic ulcer of other part of left lower leg limited to breakdown of skin; L97.811 Non-pressure chronic ulcer of other part of right lower leg limited to breakdown of skin; I87.2 Venous insufficiency (chronic) (peripheral); E11.51 Type 2 diabetes mellitus with diabetic peripheral angiopathy without gangrene; B35.1 Tinea unguium; I25.10 Atherosclerotic heart disease of native coronary artery without angina pectoris; E11.22 Type 2 diabetes mellitus with diabetic chronic kidney disease; I13.0 Hypertensive heart and chronic kidney disease with heart failure and stage 1 through stage 4 chronic kidney disease, or unspecified chronic kidney disease; N18.4 Chronic kidney disease, stage 4 (severe); I50.22 Chronic systolic (congestive) heart failure; E11.40 Type 2 diabetes mellitus with diabetic neuropathy, unspecified; I48.91 Unspecified atrial fibrillation; I48.92 Unspecified atrial flutter; E11.21 Type 2 diabetes mellitus with diabetic nephropathy; Z95.1 Presence of aortocoronary bypass graft; Z95.5 Presence of coronary angioplasty implant and graft; Z99.2 Dependence on renal dialysis
CPT/HCPCS: 11042; 11045

== ENCOUNTER → 2018-02-16 | Outpatient (CLI) | payer OTHER ==
[~2018-02-16] MED LIST changes: +LIDOCAINE HCL 2% 5 ML JELLY TP ONE; -LIDOCAINE HCL 4% 50 ML SOLUTION TP ONE
[2018-02-16 08:32] VITALS: BP 148/67
== END | disposition home or self-care (01) ==
LOC: HBOWC 07:32
PROVIDERS: ATTEND Podiatrist
DX: E11.622 Type 2 diabetes mellitus with other skin ulcer (principal); L97.821 Non-pressure chronic ulcer of other part of left lower leg limited to breakdown of skin; L97.811 Non-pressure chronic ulcer of other part of right lower leg limited to breakdown of skin; E11.51 Type 2 diabetes mellitus with diabetic peripheral angiopathy without gangrene; E11.40 Type 2 diabetes mellitus with diabetic neuropathy, unspecified; I25.10 Atherosclerotic heart disease of native coronary artery without angina pectoris; I87.2 Venous insufficiency (chronic) (peripheral); E11.22 Type 2 diabetes mellitus with diabetic chronic kidney disease; I13.0 Hypertensive heart and chronic kidney disease with heart failure and stage 1 through stage 4 chronic kidney disease, or unspecified chronic kidney disease; N18.4 Chronic kidney disease, stage 4 (severe); I50.22 Chronic systolic (congestive) heart failure; B35.1 Tinea unguium; I48.91 Unspecified atrial fibrillation; Z99.2 Dependence on renal dialysis; Z95.1 Presence of aortocoronary bypass graft
CPT/HCPCS: 11042; 97597; 97598

== ENCOUNTER → 2018-02-23 | Outpatient (CLI) | payer OTHER ==
[2018-02-23 08:23] VITALS: BP 173/67
== END | disposition home or self-care (01) ==
LOC: HBOWC 07:47
PROVIDERS: ATTEND Podiatrist
DX: E11.622 Type 2 diabetes mellitus with other skin ulcer (principal); L97.821 Non-pressure chronic ulcer of other part of left lower leg limited to breakdown of skin; L97.811 Non-pressure chronic ulcer of other part of right lower leg limited to breakdown of skin; E11.51 Type 2 diabetes mellitus with diabetic peripheral angiopathy without gangrene; I25.10 Atherosclerotic heart disease of native coronary artery without angina pectoris; E11.22 Type 2 diabetes mellitus with diabetic chronic kidney disease; I13.0 Hypertensive heart and chronic kidney disease with heart failure and stage 1 through stage 4 chronic kidney disease, or unspecified chronic kidney disease; N18.4 Chronic kidney disease, stage 4 (severe); I50.22 Chronic systolic (congestive) heart failure; E11.40 Type 2 diabetes mellitus with diabetic neuropathy, unspecified; I48.91 Unspecified atrial fibrillation; I87.2 Venous insufficiency (chronic) (peripheral); E11.21 Type 2 diabetes mellitus with diabetic nephropathy; I48.92 Unspecified atrial flutter; Z99.2 Dependence on renal dialysis; Z95.1 Presence of aortocoronary bypass graft; Z95.5 Presence of coronary angioplasty implant and graft
CPT/HCPCS: 11042; 11045

== ENCOUNTER 2018-03-01 17:35 | Inpatient (IN) | payer OTHER ==
[2018-03-01] VITALS (9 sets, daily range): BP systolic 109–145; BP diastolic 36–82
[~2018-03-01] VITALS: Ht 167.6 cm; Wt 84.4 kg
[~2018-03-01 17:35] MED LIST changes: -LIDOCAINE HCL 2% 5 ML JELLY TP ONE
[2018-03-01 17:52] LABS: GLUCOSE,POINT OF CARE 141 MG/DL (70-110)
[2018-03-01 18:16] LABS: BASOPHILS % (AUTO) 0.2 % (0.0-2.0); EOSINOPHILS % (AUTO) 2.2 % (1.0-6.0); LYMPHOCYTES # (AUTO) 2.4 K/uL (1.0-4.8); LYMPHOCYTES % (AUTO) 32.2 % (22.0-44.0); MEAN CORPUSCULAR HEMOGLOBIN 27.7 pg (26.0-34.0); MEAN CORPUSCULAR HGB CONC 32.6 G/dL (31.0-37.0); MEAN CORPUSCULAR VOLUME 85 fL (80-100); MONOCYTES # (AUTO) 0.7 K/uL (0.1-1.0); MONOCYTES % (AUTO) 9.7 % (2.0-9.0); NEUTROPHILS # (AUTO) 4.2 K/uL (1.8-7.7); NEUTROPHILS % (AUTO) 55.7 % (40.0-70.0); PLATELET COUNT (AUTO) 153 K/uL (150-450); RED BLOOD CELL COUNT(AUTO) 1.91 MIL/uL (4.50-5.90); RED CELL DISTRIBUTION WIDTH 17.7 % (11.5-14.5)
[2018-03-01 18:28] LABS: HEMATOCRIT 16.2 % (41-53); HEMOGLOBIN 5.3 g/dL (13.5-17.5)
[2018-03-01 18:31] LABS: CALCIUM, TOTAL 8.1 mg/dL (8.8-10.5); CREATININE 2.34 mg/dL (0.60-1.30); POTASSIUM 4.6 mmol/L (3.5-5.1)
[2018-03-01 18:36] LABS: ALBUMIN 2.9 g/dL (3.4-5.0); BILIRUBIN,TOTAL 0.2 mg/dL (0.1-1.0); TOTAL PROTEIN, SERUM 5.9 g/dL (6.4-8.2)
[2018-03-01] MEDS ORDERED: SODIUM CHLORIDE 0.9% 250 ML IV ONE (20:10)
[2018-03-01] MEDS ORDERED: ONDANSETRON HCL 4 MG/2 ML VIAL IVP PRN ×2 (20:15→20:30)
[2018-03-01] MEDS ORDERED: ACETAMINOPHEN 325 MG TABLET PO PRN (20:15)
[2018-03-01] MEDS ORDERED: 0.9% SODIUM CHLORIDE 10 ML SYRINGE IVP PRN (20:15)
[2018-03-01] MEDS ORDERED: PANTOPRAZOLE SODIUM 80 MG in SODIUM CHLORIDE 0.9% 100 ML IV SCH (20:15)
[2018-03-01] MEDS ORDERED: SODIUM CHLORIDE 0.9% 1,000 ML IV SCH (20:30)
[2018-03-01] MEDS ORDERED: ALBUTEROL SULFATE 2.5 MG/0.5 ML NEB SOLUTION NEB PRN (20:30)
[2018-03-01] MEDS ORDERED: PANTOPRAZOLE SODIUM 40 MG/VIAL IVP ONE (20:30)
[2018-03-01] MEDS ORDERED: DEXTROSE 50%-WATER 25 GM/50 ML SYRINGE IVP PRN (20:30)
[2018-03-01] MEDS ORDERED: IPRATROPIUM BROMIDE 0.5 MG/2.5 ML NEB SOLUTION NEB PRN (20:30)
[2018-03-01 20:44] LABS: PROTHROMBIN TIME 10.5 SEC (9.4-11.6)
[2018-03-01 20:46] LABS: % IRON SATURATION 6.2 % (30-44)
[2018-03-01] MEDS: PANTOPRAZOLE SODIUM 80 MG in SODIUM CHLORIDE 0.9% 100 ML IV SCH (20:50)
[2018-03-01] MEDS ORDERED: PNEUMOCOCCAL VACCINE POLYVALENT 0.5 ML VIAL [PPSV23] IM ONE (23:45)
[2018-03-02] VITALS (14 sets, daily range): BP systolic 100–167; BP diastolic 36–93
[2018-03-02 05:51] LABS: BASOPHILS % (AUTO) 0.1 % (0.0-2.0); EOSINOPHILS % (AUTO) 3.9 % (1.0-6.0); HEMATOCRIT 23.1 % (41-53); HEMOGLOBIN 7.8 g/dL (13.5-17.5); LYMPHOCYTES % (AUTO) 28.8 % (22.0-44.0); MEAN CORPUSCULAR HEMOGLOBIN 28.9 pg (26.0-34.0); MEAN CORPUSCULAR HGB CONC 33.9 G/dL (31.0-37.0); MEAN CORPUSCULAR VOLUME 85 fL (80-100); MONOCYTES # (AUTO) 0.7 K/uL (0.1-1.0); NEUTROPHILS % (AUTO) 57.2 % (40.0-70.0); PLATELET COUNT (AUTO) 118 K/uL (150-450); RED BLOOD CELL COUNT(AUTO) 2.71 MIL/uL (4.50-5.90); RED CELL DISTRIBUTION WIDTH 15.8 % (11.5-14.5)
[2018-03-02] MEDS: PANTOPRAZOLE SODIUM 80 MG in SODIUM CHLORIDE 0.9% 100 ML IV SCH (06:18)
[2018-03-02 06:23] LABS: GLUCOSE,POINT OF CARE 104 MG/DL (70-110)
[2018-03-02 06:26] LABS: ALANINE AMINOTRANSFERASE 28 U/L (12-78); ALBUMIN 2.9 g/dL (3.4-5.0); ALKALINE PHOSPHATASE 106 U/L (46-116); ANION GAP 5 mmol/L (8-16); ASPARTATE AMINOTRANSFERASE 29 U/L (15-37); BILIRUBIN,TOTAL 0.6 mg/dL (0.1-1.0); CALCIUM, TOTAL 7.8 mg/dL (8.8-10.5); CARBON DIOXIDE 27 mmol/L (22-29); CHLORIDE 107 mmol/L (98-107); CHOL/HDL RATIO 2.5 (4.2-7.3); CHOLESTEROL 71 mg/dL (131-200); CREATININE 1.92 mg/dL (0.60-1.30); FREE T4 (FREE THYROXINE) 0.92 ng/dL (0.76-1.46); GLOMERULAR FILTR. RATE CALC 33 mL/min (>60); GLUCOSE,RANDOM 104 mg/dL (70-110); HDL CHOLESTEROL 28 mg/dL (40-60); LDL CHOL (CALC.) 26 mg/dL (0-130); PHOSPHORUS 5.1 mg/dL (2.5-4.9); POTASSIUM 4.6 mmol/L (3.5-5.1); SODIUM SERUM 139 mmol/L (136-145); THYROID STIMULATING HORMONE 4.39 uIU/mL (0.36-3.74); TOTAL PROTEIN, SERUM 5.5 g/dL (6.4-8.2); TRIGLYCERIDES 85 mg/dL (15-150); UREA NITROGEN, BLOOD 52 mg/dL (7-18)
[2018-03-02 07:58] LABS: HEMATOCRIT 22.7 % (41-53); HEMOGLOBIN 7.6 g/dL (13.5-17.5)
[2018-03-02] MEDS ORDERED: MIDAZOLAM HCL 5 MG/ML VIAL ONE (07:59)
[2018-03-02] MEDS ORDERED: FentaNYL CITRATE-PF 100 MCG/2 ML VIAL ONE (07:59)
[2018-03-02] MEDS: PANTOPRAZOLE SODIUM 40 MG/VIAL IVP SCH ×2 (09:00→20:57)
[2018-03-02 11:25] LABS: HEMATOCRIT 23.1 % (41-53); HEMOGLOBIN 7.8 g/dL (13.5-17.5)
[2018-03-02 12:08] LABS: GLUCOSE,POINT OF CARE 101 MG/DL (70-110)
[2018-03-02 18:18] LABS: GLUCOSE,POINT OF CARE 105 MG/DL (70-110)
[2018-03-02] MEDS: INSULIN LISPRO 100 UNITS/ML SQ PRN (21:17)
[2018-03-02 22:27] LABS: GLUCOSE,POINT OF CARE 111 MG/DL (70-110)
[2018-03-03] VITALS (8 sets, daily range): BP systolic 117–173; BP diastolic 59–78
[2018-03-03 06:02] LABS: BASOPHILS % (AUTO) 0.3 % (0.0-2.0); EOSINOPHILS % (AUTO) 2.9 % (1.0-6.0); HEMATOCRIT 22.8 % (41-53); HEMOGLOBIN 7.7 g/dL (13.5-17.5); LYMPHOCYTES # (AUTO) 1.7 K/uL (1.0-4.8); LYMPHOCYTES % (AUTO) 22.4 % (22.0-44.0); MEAN CORPUSCULAR HEMOGLOBIN 28.8 pg (26.0-34.0); MEAN CORPUSCULAR HGB CONC 33.9 G/dL (31.0-37.0); MEAN CORPUSCULAR VOLUME 85 fL (80-100); MONOCYTES # (AUTO) 0.9 K/uL (0.1-1.0); MONOCYTES % (AUTO) 11.5 % (2.0-9.0); NEUTROPHILS # (AUTO) 4.7 K/uL (1.8-7.7); NEUTROPHILS % (AUTO) 62.9 % (40.0-70.0); PLATELET COUNT (AUTO) 126 K/uL (150-450); RED BLOOD CELL COUNT(AUTO) 2.68 MIL/uL (4.50-5.90); RED CELL DISTRIBUTION WIDTH 16.1 % (11.5-14.5)
[2018-03-03] MEDS: INSULIN LISPRO 100 UNITS/ML SQ PRN ×2 (06:14→20:38)
[2018-03-03 06:15] LABS: CALCIUM, TOTAL 8.1 mg/dL (8.8-10.5); CREATININE 1.55 mg/dL (0.60-1.30); POTASSIUM 4.2 mmol/L (3.5-5.1)
[2018-03-03 06:57] LABS: GLUCOSE,POINT OF CARE 91 MG/DL (70-110)
[2018-03-03] MEDS: MUPIROCIN CALCIUM 2% 22 GM OINTMENT TP SCH (09:03)
[2018-03-03] MEDS: PANTOPRAZOLE SODIUM 40 MG/VIAL IVP SCH ×2 (09:03→20:29)
[2018-03-03 12:12] LABS: GLUCOSE,POINT OF CARE 121 MG/DL (70-110)
[2018-03-03] MEDS ORDERED: VALSARTAN 160 MG TABLET PO ONE (14:30)
[2018-03-03] MEDS: VALSARTAN 160 MG TABLET PO SCH (15:25)
[2018-03-03 18:08] LABS: HEMOGLOBIN 8.1 g/dL (13.5-17.5)
[2018-03-03 18:12] LABS: GLUCOSE,POINT OF CARE 84 MG/DL (70-110)
[2018-03-03] MEDS: FERROUS SULFATE 325 MG EC TABLET PO SCH ×2 (18:15→20:29)
[2018-03-03] MEDS ORDERED: HydrALAZINE HCL 20 MG/ML VIAL IVP PRN (18:15)
[2018-03-03] MEDS ORDERED: HydrALAZINE HCL 20 MG/ML VIAL ONE (18:16)
[2018-03-03] MEDS: RANITIDINE HCL 150 MG TABLET PO SCH (20:29)
[2018-03-03] MEDS: PREGABALIN 50 MG CAPSULE PO SCH (20:29)
[2018-03-03] MEDS: CARVEDILOL 6.25 MG TABLET PO SCH (20:30)
[2018-03-03] MEDS: DOXAZOSIN MESYLATE 2 MG TABLET PO SCH (20:30)
[2018-03-03 21:24] LABS: HEMATOCRIT 23.6 % (41-53); HEMOGLOBIN 7.9 g/dL (13.5-17.5)
[2018-03-03 22:57] LABS: GLUCOMETER DEV NAME(LOC) 5S 2P; GLUCOSE,POINT OF CARE 196 MG/DL (70-110)
[2018-03-04 04:38] VITALS: BP 155/65
[2018-03-04 07:37] LABS: GLUCOMETER DEV NAME(LOC) 5S 2P; GLUCOSE,POINT OF CARE 113 MG/DL (70-110)
[2018-03-04 07:44] VITALS: BP 153/70
[2018-03-04] MEDS: FERROUS SULFATE 325 MG EC TABLET PO SCH ×3 (08:42→20:42)
[2018-03-04] MEDS: CARVEDILOL 6.25 MG TABLET PO SCH ×2 (08:42→20:42)
[2018-03-04] MEDS: ASCORBIC ACID 500 MG TABLET PO SCH (08:42)
[2018-03-04] MEDS: PANTOPRAZOLE SODIUM 40 MG/VIAL IVP SCH ×2 (08:43→20:41)
[2018-03-04] MEDS: VALSARTAN 160 MG TABLET PO SCH (08:43)
[2018-03-04] MEDS: SitaGLIPtin PHOSPHATE 50 MG TABLET PO SCH (08:43)
[2018-03-04] MEDS: MUPIROCIN CALCIUM 2% 22 GM OINTMENT TP SCH (08:43)
[2018-03-04] MEDS ORDERED: LEVOTHYROXINE SODIUM 50 MCG TABLET PO SCH (09:00)
[2018-03-04 09:05] LABS: HEMATOCRIT 22.4 % (41-53); HEMOGLOBIN 7.6 g/dL (13.5-17.5)
[2018-03-04] MEDS: PREGABALIN 50 MG CAPSULE PO SCH ×2 (09:25→20:42)
[2018-03-04] MEDS: RANITIDINE HCL 150 MG TABLET PO SCH ×2 (09:25→20:41)
[2018-03-04] MEDS: ATORVASTATIN CALCIUM 40 MG TABLET PO SCH (09:25)
[2018-03-04] MEDS: CHOLECALCIFEROL (VIT D3) 1,000 UNITS TABLET PO SCH (09:25)
[2018-03-04] MEDS: DULoxetine HCL 60 MG CAPSULE PO SCH (09:26)
[2018-03-04] MEDS: ISOSORBIDE MONONITRATE 30 MG ER TABLET PO SCH (09:26)
[2018-03-04 11:28] VITALS: BP 148/68
[2018-03-04] MEDS: INSULIN LISPRO 100 UNITS/ML SQ PRN ×3 (11:31→20:43)
[2018-03-04 15:58] VITALS: BP 109/46
[2018-03-04 20:09] VITALS: BP 139/74
[2018-03-04] MEDS: DOXAZOSIN MESYLATE 2 MG TABLET PO SCH (20:42)
[2018-03-04 21:26] LABS: HEMATOCRIT 21.6 % (41-53); HEMOGLOBIN 7.4 g/dL (13.5-17.5)
[2018-03-04 22:32] LABS: GLUCOMETER DEV NAME(LOC) 5S 2P; GLUCOSE,POINT OF CARE 191 MG/DL (70-110)
[2018-03-04 22:32] LABS: GLUCOMETER DEV NAME(LOC) 5S 2P; GLUCOSE,POINT OF CARE 132 MG/DL (70-110)
[2018-03-04 22:32] LABS: GLUCOMETER DEV NAME(LOC) 5S 2P; GLUCOSE,POINT OF CARE 135 MG/DL (70-110)
[2018-03-05 00:02] VITALS: BP 113/57
[2018-03-05 05:37] VITALS: BP 145/63
[2018-03-05] MEDS: LEVOTHYROXINE SODIUM 50 MCG TABLET PO SCH ×2 (06:30→06:40)
[2018-03-05 07:10] VITALS: BP 147/62
[2018-03-05] MEDS: CARVEDILOL 6.25 MG TABLET PO SCH ×2 (08:39→22:01)
[2018-03-05] MEDS: DULoxetine HCL 60 MG CAPSULE PO SCH (08:39)
[2018-03-05] MEDS: ATORVASTATIN CALCIUM 40 MG TABLET PO SCH (08:40)
[2018-03-05] MEDS: SitaGLIPtin PHOSPHATE 50 MG TABLET PO SCH (08:40)
[2018-03-05] MEDS: VALSARTAN 160 MG TABLET PO SCH (08:40)
[2018-03-05] MEDS: ISOSORBIDE MONONITRATE 30 MG ER TABLET PO SCH (08:40)
[2018-03-05] MEDS: ASCORBIC ACID 500 MG TABLET PO SCH (08:40)
[2018-03-05] MEDS: PREGABALIN 50 MG CAPSULE PO SCH ×2 (08:40→22:01)
[2018-03-05] MEDS: FERROUS SULFATE 325 MG EC TABLET PO SCH ×3 (08:40→22:01)
[2018-03-05] MEDS: CHOLECALCIFEROL (VIT D3) 1,000 UNITS TABLET PO SCH (08:41)
[2018-03-05] MEDS: RANITIDINE HCL 150 MG TABLET PO SCH ×2 (09:00→22:01)
[2018-03-05 10:24] LABS: HEMATOCRIT 21.8 % (41-53); HEMOGLOBIN 7.4 g/dL (13.5-17.5)
[2018-03-05 11:41] VITALS: BP 155/70
[2018-03-05] MEDS: MUPIROCIN CALCIUM 2% 22 GM OINTMENT TP SCH (11:44)
[2018-03-05] MEDS: PANTOPRAZOLE SODIUM 40 MG/VIAL IVP SCH ×2 (11:44→22:00)
[2018-03-05] MEDS: INSULIN LISPRO 100 UNITS/ML SQ PRN ×2 (12:35→18:33)
[2018-03-05] MEDS ORDERED: CARV6 PO (14:51)
[2018-03-05] MEDS ORDERED: DOXA2TAB PO (14:51)
[2018-03-05] MEDS ORDERED: LEVO50 PO (14:51)
[2018-03-05 16:02] VITALS: BP 162/72
[2018-03-05 16:02] LABS: GLUCOMETER DEV NAME(LOC) 5N 1P; GLUCOSE,POINT OF CARE 107 MG/DL (70-110)
[2018-03-05 19:33] VITALS: BP 160/72
[2018-03-05 21:09] LABS: HEMATOCRIT 21.4 % (41-53); HEMOGLOBIN 7.3 g/dL (13.5-17.5)
[2018-03-05 21:48] LABS: GLUCOMETER DEV NAME(LOC) 5S 1M; GLUCOSE,POINT OF CARE 201 MG/DL (70-110)
[2018-03-05 21:48] LABS: GLUCOMETER DEV NAME(LOC) 5S 1M; GLUCOSE,POINT OF CARE 100 MG/DL (70-110)
[2018-03-05] MEDS: DOXAZOSIN MESYLATE 2 MG TABLET PO SCH (22:00)
[2018-03-06 00:04] VITALS: BP 149/65
[2018-03-06 05:23] VITALS: BP 153/68
[2018-03-06] MEDS: LEVOTHYROXINE SODIUM 50 MCG TABLET PO SCH (05:46)
[2018-03-06 07:17] LABS: GLUCOMETER DEV NAME(LOC) 5S 2P; GLUCOSE,POINT OF CARE 118 MG/DL (70-110)
[2018-03-06 07:18] LABS: GLUCOMETER DEV NAME(LOC) 5S 2P; GLUCOSE,POINT OF CARE 93 MG/DL (70-110)
[2018-03-06 07:36] VITALS: BP 156/66
[2018-03-06] MEDS: CARVEDILOL 6.25 MG TABLET PO SCH ×2 (09:00→21:22)
[2018-03-06] MEDS: RANITIDINE HCL 150 MG TABLET PO SCH (09:00)
[2018-03-06] MEDS: FERROUS SULFATE 325 MG EC TABLET PO SCH ×3 (09:00→21:22)
[2018-03-06] MEDS: PREGABALIN 50 MG CAPSULE PO SCH ×2 (09:00→21:22)
[2018-03-06] MEDS: PANTOPRAZOLE SODIUM 40 MG/VIAL IVP SCH ×2 (10:02→21:31)
[2018-03-06] MEDS: MUPIROCIN CALCIUM 2% 22 GM OINTMENT TP SCH (10:03)
[2018-03-06] MEDS ORDERED: SODIUM CHLORIDE 0.9% 1,000 ML IV ONE ×2 (11:28→14:00)
[2018-03-06 11:35] VITALS: BP 164/75
[2018-03-06] MEDS ORDERED: PROPOFOL 1% 20 ML VIAL IVP ONE (12:00)
[2018-03-06] MEDS: INSULIN LISPRO 100 UNITS/ML SQ PRN ×3 (12:11→21:39)
[2018-03-06] MEDS: DULoxetine HCL 60 MG CAPSULE PO SCH (16:46)
[2018-03-06] MEDS: CHOLECALCIFEROL (VIT D3) 1,000 UNITS TABLET PO SCH (16:46)
[2018-03-06] MEDS: ASCORBIC ACID 500 MG TABLET PO SCH (16:46)
[2018-03-06] MEDS: ATORVASTATIN CALCIUM 40 MG TABLET PO SCH (16:46)
[2018-03-06] MEDS: ISOSORBIDE MONONITRATE 30 MG ER TABLET PO SCH (16:47)
[2018-03-06 19:04] LABS: GLUCOMETER DEV NAME(LOC) 5S 1M; GLUCOSE,POINT OF CARE 120 MG/DL (70-110)
[2018-03-06 19:04] LABS: GLUCOMETER DEV NAME(LOC) 5S 1M; GLUCOSE,POINT OF CARE 96 MG/DL (70-110)
[2018-03-06 20:26] VITALS: BP 150/61
[2018-03-06] MEDS: DOXAZOSIN MESYLATE 2 MG TABLET PO SCH (21:22)
[2018-03-06 22:25] LABS: OVA AND PARASITES EXAM Final report
[2018-03-07] VITALS (14 sets, daily range): BP systolic 107–173; BP diastolic 50–74
[2018-03-07] MEDS: LEVOTHYROXINE SODIUM 50 MCG TABLET PO SCH (05:52)
[2018-03-07] MEDS: FERROUS SULFATE 325 MG EC TABLET PO SCH ×3 (08:45→20:27)
[2018-03-07] MEDS: ATORVASTATIN CALCIUM 40 MG TABLET PO SCH (08:45)
[2018-03-07] MEDS: CHOLECALCIFEROL (VIT D3) 1,000 UNITS TABLET PO SCH (08:45)
[2018-03-07] MEDS: ASCORBIC ACID 500 MG TABLET PO SCH (08:45)
[2018-03-07] MEDS: PANTOPRAZOLE SODIUM 40 MG/VIAL IVP SCH ×2 (08:46→20:28)
[2018-03-07] MEDS: CARVEDILOL 6.25 MG TABLET PO SCH ×2 (08:46→20:27)
[2018-03-07] MEDS: PREGABALIN 50 MG CAPSULE PO SCH ×2 (08:46→20:27)
[2018-03-07] MEDS: DULoxetine HCL 60 MG CAPSULE PO SCH (08:46)
[2018-03-07] MEDS: ISOSORBIDE MONONITRATE 30 MG ER TABLET PO SCH (08:46)
[2018-03-07] MEDS: MUPIROCIN CALCIUM 2% 22 GM OINTMENT TP SCH (08:47)
[2018-03-07 10:20] LABS: BASOPHILS % (AUTO) 0.4 % (0.0-2.0); HEMATOCRIT 21.5 % (41-53); HEMOGLOBIN 7.3 g/dL (13.5-17.5); LYMPHOCYTES # (AUTO) 1.1 K/uL (1.0-4.8); LYMPHOCYTES % (AUTO) 19.9 % (22.0-44.0); MEAN CORPUSCULAR HEMOGLOBIN 28.7 pg (26.0-34.0); MEAN CORPUSCULAR VOLUME 84 fL (80-100); MONOCYTES # (AUTO) 0.5 K/uL (0.1-1.0); MONOCYTES % (AUTO) 9.3 % (2.0-9.0); NEUTROPHILS # (AUTO) 3.6 K/uL (1.8-7.7); NEUTROPHILS % (AUTO) 63.4 % (40.0-70.0); PLATELET COUNT (AUTO) 181 K/uL (150-450); RED BLOOD CELL COUNT(AUTO) 2.54 MIL/uL (4.50-5.90); RED CELL DISTRIBUTION WIDTH 15.7 % (11.5-14.5)
[2018-03-07 11:53] LABS: GLUCOMETER DEV NAME(LOC) 5S 1M; GLUCOSE,POINT OF CARE 112 MG/DL (70-110)
[2018-03-07 11:53] LABS: GLUCOMETER DEV NAME(LOC) 5S 1M; GLUCOSE,POINT OF CARE 149 MG/DL (70-110)
[2018-03-07 11:53] LABS: GLUCOMETER DEV NAME(LOC) 5S 1M; GLUCOSE,POINT OF CARE 179 MG/DL (70-110)
[2018-03-07] MEDS ORDERED: SODIUM CHLORIDE 0.9% 250 ML IV ONE (12:11)
[2018-03-07] MEDS: VALSARTAN 160 MG TABLET PO SCH ×2 (12:16→12:26)
[2018-03-07] MEDS: INSULIN LISPRO 100 UNITS/ML SQ PRN ×2 (12:18→21:40)
[2018-03-07 20:03] LABS: GLUCOMETER DEV NAME(LOC) 5S 2P; GLUCOSE,POINT OF CARE 123 MG/DL (70-110)
[2018-03-07] MEDS: DOXAZOSIN MESYLATE 2 MG TABLET PO SCH (20:27)
[2018-03-08 00:42] VITALS: BP 142/59
[2018-03-08 03:41] VITALS: BP 136/58
[2018-03-08 06:37] LABS: BASOPHILS % (AUTO) 0.4 % (0.0-2.0); EOSINOPHILS % (AUTO) 8.2 % (1.0-6.0); HEMATOCRIT 23.7 % (41-53); HEMOGLOBIN 8.2 g/dL (13.5-17.5); LYMPHOCYTES # (AUTO) 1.7 K/uL (1.0-4.8); LYMPHOCYTES % (AUTO) 26.4 % (22.0-44.0); MEAN CORPUSCULAR HEMOGLOBIN 29.2 pg (26.0-34.0); MEAN CORPUSCULAR HGB CONC 34.7 G/dL (31.0-37.0); MEAN CORPUSCULAR VOLUME 84 fL (80-100); MONOCYTES # (AUTO) 0.8 K/uL (0.1-1.0); MONOCYTES % (AUTO) 12.6 % (2.0-9.0); NEUTROPHILS # (AUTO) 3.3 K/uL (1.8-7.7); NEUTROPHILS % (AUTO) 52.4 % (40.0-70.0); PLATELET COUNT (AUTO) 175 K/uL (150-450); RED BLOOD CELL COUNT(AUTO) 2.81 MIL/uL (4.50-5.90); RED CELL DISTRIBUTION WIDTH 15.4 % (11.5-14.5)
[2018-03-08] MEDS: LEVOTHYROXINE SODIUM 50 MCG TABLET PO SCH (06:43)
[2018-03-08 07:38] VITALS: BP 158/69
[2018-03-08] MEDS: DULoxetine HCL 60 MG CAPSULE PO SCH (08:37)
[2018-03-08] MEDS: ISOSORBIDE MONONITRATE 30 MG ER TABLET PO SCH (08:37)
[2018-03-08] MEDS: CARVEDILOL 6.25 MG TABLET PO SCH (08:37)
[2018-03-08] MEDS: FERROUS SULFATE 325 MG EC TABLET PO SCH ×2 (08:37→16:28)
[2018-03-08] MEDS: ASCORBIC ACID 500 MG TABLET PO SCH (08:37)
[2018-03-08] MEDS: ATORVASTATIN CALCIUM 40 MG TABLET PO SCH (08:37)
[2018-03-08] MEDS: PANTOPRAZOLE SODIUM 40 MG/VIAL IVP SCH (08:37)
[2018-03-08] MEDS: CHOLECALCIFEROL (VIT D3) 1,000 UNITS TABLET PO SCH (08:37)
[2018-03-08] MEDS: VALSARTAN 160 MG TABLET PO SCH (08:37)
[2018-03-08] MEDS: PREGABALIN 50 MG CAPSULE PO SCH (08:37)
[2018-03-08] MEDS: MUPIROCIN CALCIUM 2% 22 GM OINTMENT TP SCH (08:38)
[2018-03-08] MEDS: INSULIN LISPRO 100 UNITS/ML SQ PRN ×2 (11:39→17:39)
[2018-03-08 11:57] VITALS: BP 120/51
[2018-03-08 15:32] VITALS: BP 144/63
[2018-03-08 17:17] LABS: GLUCOMETER DEV NAME(LOC) 5S 1M; GLUCOSE,POINT OF CARE 115 MG/DL (70-110)
[2018-03-08 17:17] LABS: GLUCOMETER DEV NAME(LOC) 5S 1M; GLUCOSE,POINT OF CARE 212 MG/DL (70-110)
[2018-03-08 17:17] LABS: GLUCOMETER DEV NAME(LOC) 5S 1M; GLUCOSE,POINT OF CARE 199 MG/DL (70-110)
[2018-03-08 17:17] LABS: GLUCOMETER DEV NAME(LOC) 5S 1M; GLUCOSE,POINT OF CARE 216 MG/DL (70-110)
[2018-03-08 18:12] LABS: GLUCOMETER DEV NAME(LOC) 5S 1M; GLUCOSE,POINT OF CARE 143 MG/DL (70-110)
[2018-03-16] MEDS ORDERED: VITAD1000 PO (14:04)
[2018-03-16] MEDS ORDERED: INSU100I15 SQ (14:44)
[2018-03-16] MEDS ORDERED: PANT40TA25 PO (14:44)
[2018-03-23] MEDS ORDERED: TRIA15OI6 TP (09:30)
[2018-04-13] MEDS ORDERED: PRED20 PO (09:25)
[2018-04-13] MEDS ORDERED: VALA500T38 PO (09:28)
== END 2018-03-08 18:50 | DRG 377 ==
LOC: EMS 17:36 → ICU 21:32 → 5S 03-03 18:55 → 5N 03-05 10:35
PROVIDERS: ADMIT Internal Medicine; ATTEND Internal Medicine
PROC: 30233N1 Transfusion of Nonautologous Red Blood Cells into Peripheral Vein, Percutaneous Approach (ICD-10-PCS; 2018-03-01)
PROC: 0DJ08ZZ Inspection of Upper Intestinal Tract, Via Natural or Artificial Opening Endoscopic (ICD-10-PCS; 2018-03-02)
PROC: 0DB98ZX Excision of Duodenum, Via Natural or Artificial Opening Endoscopic, Diagnostic (ICD-10-PCS; principal; 2018-03-06 15:00)
DX: K26.4 Chronic or unspecified duodenal ulcer with hemorrhage (principal); N17.0 Acute kidney failure with tubular necrosis; D62 Acute posthemorrhagic anemia; N17.9 Acute kidney failure, unspecified; I25.110 Atherosclerotic heart disease of native coronary artery with unstable angina pectoris; E44.0 Moderate protein-calorie malnutrition; E11.22 Type 2 diabetes mellitus with diabetic chronic kidney disease; E11.40 Type 2 diabetes mellitus with diabetic neuropathy, unspecified; I50.9 Heart failure, unspecified; N18.3 Chronic kidney disease, stage 3 (moderate); E03.9 Hypothyroidism, unspecified; E11.51 Type 2 diabetes mellitus with diabetic peripheral angiopathy without gangrene; E11.622 Type 2 diabetes mellitus with other skin ulcer; E55.9 Vitamin D deficiency, unspecified; E78.5 Hyperlipidemia, unspecified; I70.0 Atherosclerosis of aorta; K25.9 Gastric ulcer, unspecified as acute or chronic, without hemorrhage or perforation; K29.70 Gastritis, unspecified, without bleeding; K29.80 Duodenitis without bleeding; K80.20 Calculus of gallbladder without cholecystitis without obstruction; L98.499 Non-pressure chronic ulcer of skin of other sites with unspecified severity; G89.29 Other chronic pain; Z88.8 Allergy status to other drugs, medicaments and biological substances; Z79.899 Other long term (current) drug therapy; Z79.84 Long term (current) use of oral hypoglycemic drugs; Z79.82 Long term (current) use of aspirin; Z68.30 Body mass index [BMI] 30.0-30.9, adult
CPT/HCPCS: 36430; 71250; 82105; 82270; 82271; 82378; 82607; 82728; 82746; 83540; 83550; 83735; 84100; 84145; 84439; 84443; 85014; 85018; 86301; 86850; 86900; 86901; 86920; 87045; 87081; 87177; 88305; 88312; 89055; 90471; 93005; 93306; 93970; 96374; 99291; C9113; J0360; J2250; J2704; J3010; J7030; J7050; P9016

== ENCOUNTER → 2018-03-16 | Outpatient (CLI) | payer OTHER ==
[~2018-03-16] MED LIST changes: -CARV12.530 PO; +CARV6 PO; -DOXA1TAB2 PO; +DOXA2TAB PO; +INSU100I15 SQ; -LEVO25TA9 PO; +LEVO50 PO; +PANT40TA25 PO; +PRED20 PO; +TRIA15OI6 TP; +VALA500T38 PO
[2018-03-16 09:31] VITALS: BP 143/77
== END | disposition home or self-care (01) ==
LOC: HBOWC 07:41
PROVIDERS: ATTEND Podiatrist
DX: E11.622 Type 2 diabetes mellitus with other skin ulcer (principal); L97.821 Non-pressure chronic ulcer of other part of left lower leg limited to breakdown of skin; L97.811 Non-pressure chronic ulcer of other part of right lower leg limited to breakdown of skin; E11.51 Type 2 diabetes mellitus with diabetic peripheral angiopathy without gangrene; I25.10 Atherosclerotic heart disease of native coronary artery without angina pectoris; E78.5 Hyperlipidemia, unspecified; E03.9 Hypothyroidism, unspecified; G89.29 Other chronic pain; E11.22 Type 2 diabetes mellitus with diabetic chronic kidney disease; E11.40 Type 2 diabetes mellitus with diabetic neuropathy, unspecified; E11.21 Type 2 diabetes mellitus with diabetic nephropathy; N18.4 Chronic kidney disease, stage 4 (severe); I50.22 Chronic systolic (congestive) heart failure; I48.91 Unspecified atrial fibrillation; I48.92 Unspecified atrial flutter; I87.2 Venous insufficiency (chronic) (peripheral); Z95.1 Presence of aortocoronary bypass graft; Z95.5 Presence of coronary angioplasty implant and graft; Z99.2 Dependence on renal dialysis
CPT/HCPCS: 11042

== ENCOUNTER → 2018-03-23 | Outpatient (CLI) | payer OTHER ==
[~2018-03-23] MED LIST changes: -ASPI-1188 PO; -BUME1TAB17 PO; -CALC-911 PO; -CILO100T PO; -CLOP75 PO; -MULT-1192 PO; -NITR0.4T SL; -PRED20 PO; -RANI150T7 PO; -SITA50 PO; -SLOWK8 PO; -VALA500T38 PO; -VITA100049 PO
[2018-03-23 08:22] VITALS: BP 173/74
== END | disposition home or self-care (01) ==
LOC: HBOWC 07:54
PROVIDERS: ATTEND Podiatrist
DX: E11.622 Type 2 diabetes mellitus with other skin ulcer (principal); L97.321 Non-pressure chronic ulcer of left ankle limited to breakdown of skin; L97.811 Non-pressure chronic ulcer of other part of right lower leg limited to breakdown of skin; I87.2 Venous insufficiency (chronic) (peripheral); E11.51 Type 2 diabetes mellitus with diabetic peripheral angiopathy without gangrene; B35.1 Tinea unguium; E78.5 Hyperlipidemia, unspecified; E03.9 Hypothyroidism, unspecified; G89.29 Other chronic pain; E11.40 Type 2 diabetes mellitus with diabetic neuropathy, unspecified; E11.21 Type 2 diabetes mellitus with diabetic nephropathy; E11.22 Type 2 diabetes mellitus with diabetic chronic kidney disease; I13.0 Hypertensive heart and chronic kidney disease with heart failure and stage 1 through stage 4 chronic kidney disease, or unspecified chronic kidney disease; N18.4 Chronic kidney disease, stage 4 (severe); I50.22 Chronic systolic (congestive) heart failure; I48.91 Unspecified atrial fibrillation; I48.92 Unspecified atrial flutter; Z99.2 Dependence on renal dialysis; Z79.4 Long term (current) use of insulin; Z95.1 Presence of aortocoronary bypass graft
CPT/HCPCS: 11042

== ENCOUNTER → 2018-03-30 | Outpatient (CLI) | payer OTHER ==
[2018-03-30 08:15] VITALS: BP 164/77
== END | disposition home or self-care (01) ==
LOC: HBOWC 07:20
PROVIDERS: ATTEND Podiatrist
DX: S81.802D Unspecified open wound, left lower leg, subsequent encounter (principal); E11.22 Type 2 diabetes mellitus with diabetic chronic kidney disease; I13.0 Hypertensive heart and chronic kidney disease with heart failure and stage 1 through stage 4 chronic kidney disease, or unspecified chronic kidney disease; N18.4 Chronic kidney disease, stage 4 (severe); I50.32 Chronic diastolic (congestive) heart failure; E78.5 Hyperlipidemia, unspecified; E03.9 Hypothyroidism, unspecified; G89.29 Other chronic pain; E11.21 Type 2 diabetes mellitus with diabetic nephropathy; E11.51 Type 2 diabetes mellitus with diabetic peripheral angiopathy without gangrene; I48.91 Unspecified atrial fibrillation; I48.92 Unspecified atrial flutter; I87.2 Venous insufficiency (chronic) (peripheral); I25.10 Atherosclerotic heart disease of native coronary artery without angina pectoris; Z95.1 Presence of aortocoronary bypass graft; Z95.820 Peripheral vascular angioplasty status with implants and grafts; Z99.2 Dependence on renal dialysis; Z79.4 Long term (current) use of insulin; X58.XXXD Exposure to other specified factors, subsequent encounter
CPT/HCPCS: 11042

== ENCOUNTER → 2018-04-06 | Outpatient (CLI) | payer OTHER ==
[2018-04-06 08:20] VITALS: BP 199/86
== END | disposition home or self-care (01) ==
LOC: HBOWC 08:20
PROVIDERS: ATTEND Podiatrist
DX: S81.802D Unspecified open wound, left lower leg, subsequent encounter (principal); E11.22 Type 2 diabetes mellitus with diabetic chronic kidney disease; I13.0 Hypertensive heart and chronic kidney disease with heart failure and stage 1 through stage 4 chronic kidney disease, or unspecified chronic kidney disease; N18.4 Chronic kidney disease, stage 4 (severe); I50.32 Chronic diastolic (congestive) heart failure; E78.5 Hyperlipidemia, unspecified; E03.9 Hypothyroidism, unspecified; G89.29 Other chronic pain; E11.21 Type 2 diabetes mellitus with diabetic nephropathy; E11.51 Type 2 diabetes mellitus with diabetic peripheral angiopathy without gangrene; I48.91 Unspecified atrial fibrillation; I48.92 Unspecified atrial flutter; I87.2 Venous insufficiency (chronic) (peripheral); I25.10 Atherosclerotic heart disease of native coronary artery without angina pectoris; Z95.1 Presence of aortocoronary bypass graft; Z95.820 Peripheral vascular angioplasty status with implants and grafts; Z99.2 Dependence on renal dialysis; Z79.4 Long term (current) use of insulin; X58.XXXD Exposure to other specified factors, subsequent encounter
CPT/HCPCS: 11042

== ENCOUNTER 2018-04-11 12:22 | Emergency (ER) | payer OTHER ==
[~2018-04-11] VITALS: Ht 175.3 cm; Wt 84.5 kg
[2018-04-11 12:34] LABS: GLUCOSE,POINT OF CARE 201 MG/DL (70-110)
[2018-04-11 13:32] VITALS: BP 157/74
[2018-04-13] MEDS ORDERED: PRED20 PO (09:25)
[2018-04-13] MEDS ORDERED: VALA500T38 PO (09:28)
== END 2018-04-11 13:52 | disposition home or self-care (01) ==
LOC: EMS 12:23
DX: G51.0 Bell's palsy (principal); I11.0 Hypertensive heart disease with heart failure; I50.9 Heart failure, unspecified; I25.10 Atherosclerotic heart disease of native coronary artery without angina pectoris; Z88.5 Allergy status to narcotic agent; Z88.8 Allergy status to other drugs, medicaments and biological substances
CPT/HCPCS: 99283

== ENCOUNTER → 2018-04-13 | Outpatient (CLI) | payer OTHER ==
[~2018-04-13] MED LIST changes: +LIDOCAINE HCL 2% 5 ML JELLY TP ONE; +PRED20 PO; +VALA500T38 PO
[2018-04-13 08:42] VITALS: BP 127/64
== END | disposition home or self-care (01) ==
LOC: HBOWC 08:16
PROVIDERS: ATTEND Podiatrist
DX: S91.002D Unspecified open wound, left ankle, subsequent encounter (principal); B35.1 Tinea unguium; I25.10 Atherosclerotic heart disease of native coronary artery without angina pectoris; G51.0 Bell's palsy; E11.22 Type 2 diabetes mellitus with diabetic chronic kidney disease; I13.0 Hypertensive heart and chronic kidney disease with heart failure and stage 1 through stage 4 chronic kidney disease, or unspecified chronic kidney disease; N18.4 Chronic kidney disease, stage 4 (severe); I50.32 Chronic diastolic (congestive) heart failure; I50.22 Chronic systolic (congestive) heart failure; E78.5 Hyperlipidemia, unspecified; E03.9 Hypothyroidism, unspecified; G89.29 Other chronic pain; E11.21 Type 2 diabetes mellitus with diabetic nephropathy; E11.51 Type 2 diabetes mellitus with diabetic peripheral angiopathy without gangrene; E11.40 Type 2 diabetes mellitus with diabetic neuropathy, unspecified; I48.91 Unspecified atrial fibrillation; I48.92 Unspecified atrial flutter; I87.2 Venous insufficiency (chronic) (peripheral); Z95.1 Presence of aortocoronary bypass graft; Z79.4 Long term (current) use of insulin; Z99.2 Dependence on renal dialysis; X58.XXXD Exposure to other specified factors, subsequent encounter
CPT/HCPCS: 11042

== ENCOUNTER → 2018-04-20 | Outpatient (CLI) | payer OTHER ==
[~2018-04-20] MED LIST changes: -LIDOCAINE HCL 2% 5 ML JELLY TP ONE
[2018-04-20 08:13] VITALS: BP 158/63
== END | disposition home or self-care (01) ==
LOC: HBOWC 07:48
PROVIDERS: ATTEND Podiatrist
DX: S81.802D Unspecified open wound, left lower leg, subsequent encounter (principal); B35.1 Tinea unguium; I25.10 Atherosclerotic heart disease of native coronary artery without angina pectoris; G51.0 Bell's palsy; E11.22 Type 2 diabetes mellitus with diabetic chronic kidney disease; I13.0 Hypertensive heart and chronic kidney disease with heart failure and stage 1 through stage 4 chronic kidney disease, or unspecified chronic kidney disease; N18.4 Chronic kidney disease, stage 4 (severe); I50.32 Chronic diastolic (congestive) heart failure; I50.22 Chronic systolic (congestive) heart failure; E78.5 Hyperlipidemia, unspecified; E03.9 Hypothyroidism, unspecified; G89.29 Other chronic pain; E11.21 Type 2 diabetes mellitus with diabetic nephropathy; E11.51 Type 2 diabetes mellitus with diabetic peripheral angiopathy without gangrene; E11.40 Type 2 diabetes mellitus with diabetic neuropathy, unspecified; I48.91 Unspecified atrial fibrillation; I48.92 Unspecified atrial flutter; I87.2 Venous insufficiency (chronic) (peripheral); Z95.1 Presence of aortocoronary bypass graft; Z79.4 Long term (current) use of insulin; Z99.2 Dependence on renal dialysis; X58.XXXD Exposure to other specified factors, subsequent encounter

== ENCOUNTER → 2020-07-31 | Outpatient (CLI) | payer OTHER ==
[~2020-07-31] MED LIST changes: +CHOL100018 PO; +DULO-8 PO; -DULO60CA44 PO; +PANT-31 PO; -PANT40TA25 PO; -TRIA15OI6 TP; -VALA500T38 PO; -VITAD1000 PO
== END | disposition home or self-care (01) ==
LOC: HBOWC 09:03
PROVIDERS: ATTEND Podiatrist
DX: E11.622 Type 2 diabetes mellitus with other skin ulcer (principal); I70.238 Atherosclerosis of native arteries of right leg with ulceration of other part of lower leg; I83.218 Varicose veins of right lower extremity with both ulcer of other part of lower extremity and inflammation; L97.812 Non-pressure chronic ulcer of other part of right lower leg with fat layer exposed; I83.228 Varicose veins of left lower extremity with both ulcer of other part of lower extremity and inflammation; I70.248 Atherosclerosis of native arteries of left leg with ulceration of other part of lower leg; L97.822 Non-pressure chronic ulcer of other part of left lower leg with fat layer exposed; E11.51 Type 2 diabetes mellitus with diabetic peripheral angiopathy without gangrene; I25.10 Atherosclerotic heart disease of native coronary artery without angina pectoris; E78.5 Hyperlipidemia, unspecified; N40.0 Benign prostatic hyperplasia without lower urinary tract symptoms; M19.90 Unspecified osteoarthritis, unspecified site; E11.42 Type 2 diabetes mellitus with diabetic polyneuropathy; E11.36 Type 2 diabetes mellitus with diabetic cataract; I12.9 Hypertensive chronic kidney disease with stage 1 through stage 4 chronic kidney disease, or unspecified chronic kidney disease; E11.22 Type 2 diabetes mellitus with diabetic chronic kidney disease; L84 Corns and callosities; G51.0 Bell's palsy; I13.0 Hypertensive heart and chronic kidney disease with heart failure and stage 1 through stage 4 chronic kidney disease, or unspecified chronic kidney disease; N18.4 Chronic kidney disease, stage 4 (severe); I50.42 Chronic combined systolic (congestive) and diastolic (congestive) heart failure; E03.9 Hypothyroidism, unspecified; G89.29 Other chronic pain; E44.0 Moderate protein-calorie malnutrition; E11.21 Type 2 diabetes mellitus with diabetic nephropathy; E11.40 Type 2 diabetes mellitus with diabetic neuropathy, unspecified; I48.91 Unspecified atrial fibrillation; I48.92 Unspecified atrial flutter; I70.0 Atherosclerosis of aorta; Z88.5 Allergy status to narcotic agent; Z88.8 Allergy status to other drugs, medicaments and biological substances; Z95.5 Presence of coronary angioplasty implant and graft; Z87.891 Personal history of nicotine dependence; Z79.82 Long term (current) use of aspirin; Z95.1 Presence of aortocoronary bypass graft; Z79.4 Long term (current) use of insulin; Z99.2 Dependence on renal dialysis; Z79.899 Other long term (current) drug therapy; Z68.29 Body mass index [BMI] 29.0-29.9, adult
CPT/HCPCS: 11042; 11045; G0463

== ENCOUNTER → 2020-08-07 | Outpatient (CLI) | payer OTHER ==
[~2020-08-07] MED LIST changes: +GENTAMICIN SULFATE 0.1% 15 GM OINTMENT TP ONE; +LIDOCAINE 4% 50 ML SOLUTION TP ONE
== END | disposition home or self-care (01) ==
LOC: HBOWC 09:13
PROVIDERS: ATTEND Podiatrist
DX: E11.622 Type 2 diabetes mellitus with other skin ulcer (principal); I70.248 Atherosclerosis of native arteries of left leg with ulceration of other part of lower leg; I83.028 Varicose veins of left lower extremity with ulcer other part of lower leg; L97.822 Non-pressure chronic ulcer of other part of left lower leg with fat layer exposed; I70.238 Atherosclerosis of native arteries of right leg with ulceration of other part of lower leg; I83.018 Varicose veins of right lower extremity with ulcer other part of lower leg; L97.812 Non-pressure chronic ulcer of other part of right lower leg with fat layer exposed; S80.822D Blister (nonthermal), left lower leg, subsequent encounter; S80.821D Blister (nonthermal), right lower leg, subsequent encounter; E11.51 Type 2 diabetes mellitus with diabetic peripheral angiopathy without gangrene; E11.42 Type 2 diabetes mellitus with diabetic polyneuropathy; I25.10 Atherosclerotic heart disease of native coronary artery without angina pectoris; E78.5 Hyperlipidemia, unspecified; N40.0 Benign prostatic hyperplasia without lower urinary tract symptoms; M19.90 Unspecified osteoarthritis, unspecified site; E11.22 Type 2 diabetes mellitus with diabetic chronic kidney disease; I13.0 Hypertensive heart and chronic kidney disease with heart failure and stage 1 through stage 4 chronic kidney disease, or unspecified chronic kidney disease; I50.42 Chronic combined systolic (congestive) and diastolic (congestive) heart failure; N18.4 Chronic kidney disease, stage 4 (severe); E11.36 Type 2 diabetes mellitus with diabetic cataract; G51.0 Bell's palsy; E03.9 Hypothyroidism, unspecified; I48.91 Unspecified atrial fibrillation; Z79.4 Long term (current) use of insulin; Z79.82 Long term (current) use of aspirin; Z87.891 Personal history of nicotine dependence; Z95.1 Presence of aortocoronary bypass graft; X58.XXXD Exposure to other specified factors, subsequent encounter
CPT/HCPCS: 11042; 11045; Z7610

== ENCOUNTER → 2020-08-14 | Outpatient (CLI) | payer OTHER ==
[~2020-08-14] MED LIST changes: +CHLORHEXIDINE GLUCONATE 4% 118 ML TOPICAL LIQUID TP ONE; +LIDOCAINE 4% 50 ML SOLUTION ONE; -LIDOCAINE 4% 50 ML SOLUTION TP ONE
== END | disposition home or self-care (01) ==
LOC: HBOWC 08:55
PROVIDERS: ATTEND Podiatrist
DX: E11.622 Type 2 diabetes mellitus with other skin ulcer (principal); I70.248 Atherosclerosis of native arteries of left leg with ulceration of other part of lower leg; I83.028 Varicose veins of left lower extremity with ulcer other part of lower leg; L97.822 Non-pressure chronic ulcer of other part of left lower leg with fat layer exposed; I70.238 Atherosclerosis of native arteries of right leg with ulceration of other part of lower leg; I83.018 Varicose veins of right lower extremity with ulcer other part of lower leg; L97.812 Non-pressure chronic ulcer of other part of right lower leg with fat layer exposed; E11.51 Type 2 diabetes mellitus with diabetic peripheral angiopathy without gangrene; E11.42 Type 2 diabetes mellitus with diabetic polyneuropathy; I25.10 Atherosclerotic heart disease of native coronary artery without angina pectoris; E78.5 Hyperlipidemia, unspecified; N40.0 Benign prostatic hyperplasia without lower urinary tract symptoms; M19.90 Unspecified osteoarthritis, unspecified site; E11.22 Type 2 diabetes mellitus with diabetic chronic kidney disease; I13.0 Hypertensive heart and chronic kidney disease with heart failure and stage 1 through stage 4 chronic kidney disease, or unspecified chronic kidney disease; I50.42 Chronic combined systolic (congestive) and diastolic (congestive) heart failure; N18.4 Chronic kidney disease, stage 4 (severe); E11.36 Type 2 diabetes mellitus with diabetic cataract; G51.0 Bell's palsy; E03.9 Hypothyroidism, unspecified; I48.91 Unspecified atrial fibrillation; L84 Corns and callosities; E44.0 Moderate protein-calorie malnutrition; I48.92 Unspecified atrial flutter; E11.21 Type 2 diabetes mellitus with diabetic nephropathy; Z99.2 Dependence on renal dialysis; Z79.4 Long term (current) use of insulin; Z79.82 Long term (current) use of aspirin; Z87.891 Personal history of nicotine dependence; Z95.1 Presence of aortocoronary bypass graft; Z88.5 Allergy status to narcotic agent; Z88.8 Allergy status to other drugs, medicaments and biological substances; Z95.5 Presence of coronary angioplasty implant and graft; Z68.29 Body mass index [BMI] 29.0-29.9, adult
CPT/HCPCS: 11042; Z7610

== ENCOUNTER → 2020-08-21 | Outpatient (CLI) | payer OTHER ==
[~2020-08-21] MED LIST changes: -CHLORHEXIDINE GLUCONATE 4% 118 ML TOPICAL LIQUID TP ONE; -GENTAMICIN SULFATE 0.1% 15 GM OINTMENT TP ONE; -LIDOCAINE 4% 50 ML SOLUTION ONE
== END | disposition home or self-care (01) ==
LOC: HBOWC 08:26
PROVIDERS: ATTEND Podiatrist
DX: E11.622 Type 2 diabetes mellitus with other skin ulcer (principal); I70.248 Atherosclerosis of native arteries of left leg with ulceration of other part of lower leg; I83.018 Varicose veins of right lower extremity with ulcer other part of lower leg; L97.822 Non-pressure chronic ulcer of other part of left lower leg with fat layer exposed; I70.238 Atherosclerosis of native arteries of right leg with ulceration of other part of lower leg; I83.028 Varicose veins of left lower extremity with ulcer other part of lower leg; L97.812 Non-pressure chronic ulcer of other part of right lower leg with fat layer exposed; S80.822D Blister (nonthermal), left lower leg, subsequent encounter; S80.821D Blister (nonthermal), right lower leg, subsequent encounter; I87.2 Venous insufficiency (chronic) (peripheral); E11.51 Type 2 diabetes mellitus with diabetic peripheral angiopathy without gangrene; E11.42 Type 2 diabetes mellitus with diabetic polyneuropathy; L84 Corns and callosities; I25.10 Atherosclerotic heart disease of native coronary artery without angina pectoris; E78.5 Hyperlipidemia, unspecified; N40.0 Benign prostatic hyperplasia without lower urinary tract symptoms; M19.90 Unspecified osteoarthritis, unspecified site; E11.36 Type 2 diabetes mellitus with diabetic cataract; E11.22 Type 2 diabetes mellitus with diabetic chronic kidney disease; I13.0 Hypertensive heart and chronic kidney disease with heart failure and stage 1 through stage 4 chronic kidney disease, or unspecified chronic kidney disease; I50.42 Chronic combined systolic (congestive) and diastolic (congestive) heart failure; N18.4 Chronic kidney disease, stage 4 (severe); E03.9 Hypothyroidism, unspecified; I48.91 Unspecified atrial fibrillation; G89.29 Other chronic pain; G51.0 Bell's palsy; Z79.4 Long term (current) use of insulin; Z99.2 Dependence on renal dialysis; Z87.891 Personal history of nicotine dependence; Z95.1 Presence of aortocoronary bypass graft; X58.XXXD Exposure to other specified factors, subsequent encounter
CPT/HCPCS: 11042

== ENCOUNTER → 2020-08-28 | Outpatient (CLI) | payer OTHER | END | disposition home or self-care (01) | LOC: HBOWC 09:07 | PROVIDERS: ATTEND Podiatrist | DX: E11.622 Type 2 diabetes mellitus with other skin ulcer (principal); I70.248 Atherosclerosis of native arteries of left leg with ulceration of other part of lower leg; I83.028 Varicose veins of left lower extremity with ulcer other part of lower leg; L97.822 Non-pressure chronic ulcer of other part of left lower leg with fat layer exposed; I70.238 Atherosclerosis of native arteries of right leg with ulceration of other part of lower leg; I83.018 Varicose veins of right lower extremity with ulcer other part of lower leg; L97.812 Non-pressure chronic ulcer of other part of right lower leg with fat layer exposed; S80.822D Blister (nonthermal), left lower leg, subsequent encounter; S80.821D Blister (nonthermal), right lower leg, subsequent encounter; I87.2 Venous insufficiency (chronic) (peripheral); E11.51 Type 2 diabetes mellitus with diabetic peripheral angiopathy without gangrene; E11.42 Type 2 diabetes mellitus with diabetic polyneuropathy; L84 Corns and callosities; I25.10 Atherosclerotic heart disease of native coronary artery without angina pectoris; E78.5 Hyperlipidemia, unspecified; N40.0 Benign prostatic hyperplasia without lower urinary tract symptoms; M19.90 Unspecified osteoarthritis, unspecified site; E11.36 Type 2 diabetes mellitus with diabetic cataract; G51.0 Bell's palsy; E11.22 Type 2 diabetes mellitus with diabetic chronic kidney disease; I13.0 Hypertensive heart and chronic kidney disease with heart failure and stage 1 through stage 4 chronic kidney disease, or unspecified chronic kidney disease; I50.42 Chronic combined systolic (congestive) and diastolic (congestive) heart failure; N18.4 Chronic kidney disease, stage 4 (severe); E03.9 Hypothyroidism, unspecified; G89.29 Other chronic pain; Z95.1 Presence of aortocoronary bypass graft; Z87.891 Personal history of nicotine dependence; Z79.4 Long term (current) use of insulin; I48.91 Unspecified atrial fibrillation; Z99.2 Dependence on renal dialysis; Z79.82 Long term (current) use of aspirin; X58.XXXD Exposure to other specified factors, subsequent encounter | CPT/HCPCS: 11042 ==

== ENCOUNTER → 2020-09-04 | Outpatient (CLI) | payer OTHER | END | disposition home or self-care (01) | LOC: HBOWC 08:21 | PROVIDERS: ATTEND Podiatrist | DX: E11.622 Type 2 diabetes mellitus with other skin ulcer (principal); I70.248 Atherosclerosis of native arteries of left leg with ulceration of other part of lower leg; I83.028 Varicose veins of left lower extremity with ulcer other part of lower leg; L97.822 Non-pressure chronic ulcer of other part of left lower leg with fat layer exposed; I70.238 Atherosclerosis of native arteries of right leg with ulceration of other part of lower leg; I83.018 Varicose veins of right lower extremity with ulcer other part of lower leg; L97.812 Non-pressure chronic ulcer of other part of right lower leg with fat layer exposed; L84 Corns and callosities; E11.51 Type 2 diabetes mellitus with diabetic peripheral angiopathy without gangrene; I25.10 Atherosclerotic heart disease of native coronary artery without angina pectoris; E11.42 Type 2 diabetes mellitus with diabetic polyneuropathy; E78.5 Hyperlipidemia, unspecified; I87.2 Venous insufficiency (chronic) (peripheral); N40.0 Benign prostatic hyperplasia without lower urinary tract symptoms; M19.90 Unspecified osteoarthritis, unspecified site; E11.36 Type 2 diabetes mellitus with diabetic cataract; G51.0 Bell's palsy; E11.22 Type 2 diabetes mellitus with diabetic chronic kidney disease; I12.9 Hypertensive chronic kidney disease with stage 1 through stage 4 chronic kidney disease, or unspecified chronic kidney disease; N18.4 Chronic kidney disease, stage 4 (severe); E03.9 Hypothyroidism, unspecified; I48.91 Unspecified atrial fibrillation; Z79.4 Long term (current) use of insulin; Z87.891 Personal history of nicotine dependence; Z99.2 Dependence on renal dialysis; Z95.1 Presence of aortocoronary bypass graft | CPT/HCPCS: 11042 ==

== ENCOUNTER → 2020-09-11 | Outpatient (CLI) | payer OTHER ==
[~2020-09-11] MED LIST changes: +CHLORHEXIDINE GLUCONATE 4% 118 ML TOPICAL LIQUID TP ONE; +LIDOCAINE 4% 50 ML SOLUTION ONE
== END | disposition home or self-care (01) ==
LOC: HBOWC 08:57
PROVIDERS: ATTEND Podiatrist
DX: E11.622 Type 2 diabetes mellitus with other skin ulcer (principal); I70.248 Atherosclerosis of native arteries of left leg with ulceration of other part of lower leg; I83.228 Varicose veins of left lower extremity with both ulcer of other part of lower extremity and inflammation; L97.822 Non-pressure chronic ulcer of other part of left lower leg with fat layer exposed; I70.238 Atherosclerosis of native arteries of right leg with ulceration of other part of lower leg; I83.218 Varicose veins of right lower extremity with both ulcer of other part of lower extremity and inflammation; L97.812 Non-pressure chronic ulcer of other part of right lower leg with fat layer exposed; L84 Corns and callosities; E11.51 Type 2 diabetes mellitus with diabetic peripheral angiopathy without gangrene; E11.36 Type 2 diabetes mellitus with diabetic cataract; E11.21 Type 2 diabetes mellitus with diabetic nephropathy; E11.42 Type 2 diabetes mellitus with diabetic polyneuropathy; E78.5 Hyperlipidemia, unspecified; I25.10 Atherosclerotic heart disease of native coronary artery without angina pectoris; N40.0 Benign prostatic hyperplasia without lower urinary tract symptoms; M19.90 Unspecified osteoarthritis, unspecified site; G51.0 Bell's palsy; E11.22 Type 2 diabetes mellitus with diabetic chronic kidney disease; I13.0 Hypertensive heart and chronic kidney disease with heart failure and stage 1 through stage 4 chronic kidney disease, or unspecified chronic kidney disease; N18.4 Chronic kidney disease, stage 4 (severe); I50.42 Chronic combined systolic (congestive) and diastolic (congestive) heart failure; E03.9 Hypothyroidism, unspecified; I48.91 Unspecified atrial fibrillation; I48.92 Unspecified atrial flutter; E44.0 Moderate protein-calorie malnutrition; Z79.4 Long term (current) use of insulin; Z87.891 Personal history of nicotine dependence; Z99.2 Dependence on renal dialysis; Z95.1 Presence of aortocoronary bypass graft; Z79.82 Long term (current) use of aspirin; G89.29 Other chronic pain; Z88.5 Allergy status to narcotic agent; Z88.8 Allergy status to other drugs, medicaments and biological substances; Z68.29 Body mass index [BMI] 29.0-29.9, adult; Z95.5 Presence of coronary angioplasty implant and graft; Z79.899 Other long term (current) drug therapy
CPT/HCPCS: 11042; Z7610

== ENCOUNTER → 2020-09-18 | Outpatient (CLI) | payer OTHER ==
[~2020-09-18] MED LIST changes: +GENTAMICIN SULFATE 0.1% 15 GM OINTMENT TP ONE; -LIDOCAINE 4% 50 ML SOLUTION ONE; +LIDOCAINE 4% 50 ML SOLUTION TP ONE
== END | disposition home or self-care (01) ==
LOC: HBOWC 08:59
PROVIDERS: ATTEND Podiatrist
DX: E11.622 Type 2 diabetes mellitus with other skin ulcer (principal); I83.028 Varicose veins of left lower extremity with ulcer other part of lower leg; L97.822 Non-pressure chronic ulcer of other part of left lower leg with fat layer exposed; I83.018 Varicose veins of right lower extremity with ulcer other part of lower leg; L97.812 Non-pressure chronic ulcer of other part of right lower leg with fat layer exposed; S80.822D Blister (nonthermal), left lower leg, subsequent encounter; S80.821D Blister (nonthermal), right lower leg, subsequent encounter; I87.2 Venous insufficiency (chronic) (peripheral); E11.51 Type 2 diabetes mellitus with diabetic peripheral angiopathy without gangrene; E11.42 Type 2 diabetes mellitus with diabetic polyneuropathy; I25.10 Atherosclerotic heart disease of native coronary artery without angina pectoris; L84 Corns and callosities; E78.5 Hyperlipidemia, unspecified; N40.0 Benign prostatic hyperplasia without lower urinary tract symptoms; M19.90 Unspecified osteoarthritis, unspecified site; E11.36 Type 2 diabetes mellitus with diabetic cataract; G51.0 Bell's palsy; E11.22 Type 2 diabetes mellitus with diabetic chronic kidney disease; I50.42 Chronic combined systolic (congestive) and diastolic (congestive) heart failure; I13.0 Hypertensive heart and chronic kidney disease with heart failure and stage 1 through stage 4 chronic kidney disease, or unspecified chronic kidney disease; N18.4 Chronic kidney disease, stage 4 (severe); E03.9 Hypothyroidism, unspecified; G89.29 Other chronic pain; I48.91 Unspecified atrial fibrillation; Z87.891 Personal history of nicotine dependence; Z79.82 Long term (current) use of aspirin; Z79.4 Long term (current) use of insulin; Z99.2 Dependence on renal dialysis; Z95.1 Presence of aortocoronary bypass graft; X58.XXXD Exposure to other specified factors, subsequent encounter
CPT/HCPCS: 11042; Z7610